=== PATIENT | female | born 1940 | race Hispanic/Latino ===

== ENCOUNTER 2018-01-21 20:47 | Observation (INO) | payer MEDICARE ==
[~2018-01-21] VITALS: Ht 157.5 cm; Wt 54.8 kg
[2018-01-21] MEDS ORDERED: ASPIRIN 325 MG TABLET ONE (21:00)
[2018-01-21 21:15] LABS: BASOPHILS % (AUTO) 0.7 % (0.0-5.0); EOSINOPHILS % (AUTO) 2.2 % (0.0-8.0); HEMATOCRIT 37.1 % (36-48); LYMPHOCYTES % (AUTO) 27.1 % (21.0-51.0); MEAN CORPUSCULAR HEMOGLOBIN 31.5 pg (27.0-33.0); MEAN CORPUSCULAR HGB CONC 34.7 g/dL (32.0-36.0); MEAN CORPUSCULAR VOLUME 90.8 fL (79-99); MONOCYTES % (AUTO) 4.7 % (3.0-13.0); NEUTROPHILS % (AUTO) 65.3 % (40.0-77.0); PLATELET COUNT (AUTO) 228 K/uL (130-400); RED BLOOD CELL COUNT(AUTO) 4.09 MIL/uL (4.00-5.50); RED CELL DISTRIBUTION WIDTH 13.1 % (11.0-15.5); WHITE BLOOD COUNT (AUTO) 8.2 K/uL (4.8-10.8)
[2018-01-21 21:27] LABS: CREATININE 0.7 mg/dL (0.5-1.5); POTASSIUM 3.5 mmol/L (3.5-5.1)
[2018-01-21 21:28] LABS: INR 0.92 (0.85-1.15); PARTIAL THROMBOPLASTIN TIME 23.3 SEC (26.3-35.5); PROTHROMBIN TIME 9.7 SEC (9.6-11.6)
[2018-01-21 21:41] LABS: ALBUMIN 3.7 g/dL (3.5-5.0); BILIRUBIN,TOTAL 0.3 mg/dL (0.2-1.0); CREATINE KINASE MB 0.7 ng/mL (0.5-3.6); TOTAL PROTEIN, SERUM 7.1 g/dL (6.0-8.3)
[2018-01-21 22:05] LABS: B-TYPE NATRIURETIC PEPTIDE 34 pg/mL (0-100)
[2018-01-22] VITALS (8 sets, daily range): BP systolic 112–186; BP diastolic 46–87
[2018-01-22] MEDS ORDERED: LEVO50TA11 PO (04:10)
[2018-01-22] MEDS ORDERED: METF850T2 PO (04:10)
[2018-01-22] MEDS ORDERED: LISI40TA4 PO (04:10)
[2018-01-22] MEDS ORDERED: ATOR10 PO (04:10)
[2018-01-22] MEDS ORDERED: POTASSIUM CHLORIDE 20MEQ/100ML 100 ML IV PRN (06:00)
[2018-01-22] MEDS ORDERED: ONDANSETRON HCL MDV 20ML 2 MG/ML VIAL IVP PRN (06:00)
[2018-01-22] MEDS ORDERED: POTASSIUM CHLORIDE 10% ELIXIR 20 MEQ/15 ML UDCUP PO PRN (06:00)
[2018-01-22] MEDS ORDERED: NITROGLYCERIN 0.4 MG SL TAB SL PRN (06:00)
[2018-01-22] MEDS ORDERED: MORPHINE SULFATE 2 MG/ML 1ML SYG IVP PRN (06:00)
[2018-01-22] MEDS ORDERED: LIDOCAINE HCL-MPF 1% 2ML VIAL IJ PRN (06:00)
[2018-01-22] MEDS ORDERED: PHARMACY COMMUNICATION MISC SCH (06:00)
[2018-01-22] MEDS ORDERED: ACETAMINOPHEN 325 MG TAB PO PRN (06:00)
[2018-01-22 06:10] LABS: HEMATOCRIT 36.5 % (36-48); MEAN CORPUSCULAR HEMOGLOBIN 31.6 pg (27.0-33.0); MEAN CORPUSCULAR VOLUME 90.3 fL (79-99); PLATELET COUNT (AUTO) 199 K/uL (130-400); RED BLOOD CELL COUNT(AUTO) 4.04 MIL/uL (4.00-5.50); WHITE BLOOD COUNT (AUTO) 6.6 K/uL (4.8-10.8)
[2018-01-22 06:24] LABS: CREATININE 0.6 mg/dL (0.5-1.5); POTASSIUM 3.6 mmol/L (3.5-5.1)
[2018-01-22] MEDS ORDERED: DEXTROSE 50%-WATER 50 ML DISP.SYRIN IV PRN (06:30)
[2018-01-22] MEDS ORDERED: HYDRALAZINE HCL 10 MG TABLET PO PRN (06:30)
[2018-01-22] MEDS ORDERED: SODIUM CHLORIDE 0.9% 10 ML VIAL IVP PRN (06:30)
[2018-01-22] MEDS ORDERED: GLUCAGON 1MG KIT 1 MG ML IM PRN (06:30)
[2018-01-22] MEDS: INSULIN R PO SSI SQ SCH ×4 (06:42→21:00)
[2018-01-22] MEDS ORDERED: HYDRALAZINE HCL 20 MG/ML VIAL IV PRN (06:45)
[2018-01-22 09:38] LABS: HEMOGLOBIN A1C 6.8 % (4.0-6.0)
[2018-01-22 09:45] LABS: CREATINE KINASE MB 0.8 ng/mL (0.5-3.6); CREATINE KINASE, TOTAL 38 U/L (21-232); LIPASE 80 U/L (114-286); MYOGLOBIN 28 ng/mL (10-92); TROPONIN I < 0.04 ng/mL (0.00-0.06)
[2018-01-22] MEDS: METOPROLOL TARTRATE 25 MG TAB PO SCH ×2 (10:25→21:45)
[2018-01-22] MEDS: FAMOTIDINE 20MG TAB 20 MG TAB PO SCH ×2 (10:25→21:45)
[2018-01-22] MEDS: SUCRALFATE 1 GM/10 ML PO SCH ×3 (10:25→21:45)
[2018-01-22] MEDS: ASPIRIN 81 MG EC TAB PO SCH (10:25)
[2018-01-22] MEDS: ENOXAPARIN SODIUM 30 MG/0.3 ML SQ SCH (10:25)
[2018-01-22 15:33] LABS: CREATINE KINASE MB 0.6 ng/mL (0.5-3.6); CREATINE KINASE, TOTAL 37 U/L (21-232); MYOGLOBIN 22 ng/mL (10-92); TROPONIN I < 0.04 ng/mL (0.00-0.06)
[2018-01-22] MEDS: METFORMIN HCL 850 MG TABLET PO SCH (17:04)
[2018-01-22] MEDS: POTASSIUM CHLORIDE 20 MEQ ERTAB PO PRN ×3 (17:10→18:32)
[2018-01-22] MEDS ORDERED: ATORVASTATIN CALCIUM 10 MG TABLET PO SCH (21:00)
[2018-01-23 03:40] VITALS: BP 134/66
[2018-01-23 05:01] LABS: HEMATOCRIT 38.2 % (36-48); MEAN CORPUSCULAR HEMOGLOBIN 32.9 pg (27.0-33.0); MEAN CORPUSCULAR HGB CONC 36.2 g/dL (32.0-36.0); MEAN CORPUSCULAR VOLUME 90.8 fL (79-99); PLATELET COUNT (AUTO) 227 K/uL (130-400)
[2018-01-23 05:32] LABS: CARBON DIOXIDE 26 mmol/L (21-32); CHLORIDE 110 mmol/L (101-111); CREATINE KINASE MB 0.5 ng/mL (0.5-3.6); CREATINE KINASE, TOTAL 36 U/L (21-232); CREATININE 0.7 mg/dL (0.5-1.5); GLOMERULAR FILTR. RATE CALC 86 mL/min (>60); GLUCOSE,RANDOM 100 mg/dL (70-105); MYOGLOBIN 35 ng/mL (10-92); POTASSIUM 4.4 mmol/L (3.5-5.1); SODIUM SERUM 145 mmol/L (136-145); TROPONIN I < 0.04 ng/mL (0.00-0.06); UREA NITROGEN, BLOOD 15 mg/dL (7-18)
[2018-01-23] MEDS: INSULIN R PO SSI SQ SCH (05:59)
[2018-01-23] MEDS ORDERED: LEVOTHYROXINE 50 MCG TABLET PO SCH (06:30)
[2018-01-23] MEDS: SUCRALFATE 1 GM/10 ML PO SCH (06:41)
[2018-01-23 08:01] VITALS: BP 151/53
[2018-01-23] MEDS ORDERED: LISINOPRIL 40 MG TABLET PO SCH (09:00)
[2018-01-23] MEDS: ASPIRIN 81 MG EC TAB PO SCH (09:42)
[2018-01-23] MEDS: METFORMIN HCL 850 MG TABLET PO SCH (09:42)
[2018-01-23] MEDS: ENOXAPARIN SODIUM 30 MG/0.3 ML SQ SCH (09:42)
[2018-01-23] MEDS: METOPROLOL TARTRATE 25 MG TAB PO SCH (09:42)
[2018-01-23] MEDS: FAMOTIDINE 20MG TAB 20 MG TAB PO SCH (09:42)
[2018-01-23 11:36] VITALS: BP 135/69
== END 2018-01-23 15:35 | disposition home or self-care (01) ==
LOC: EDH 20:47 → EDHIP 23:54 → 2AH 01-22 04:10
PROVIDERS: ADMIT Internal Medicine Nephrology; ATTEND Internal Medicine Nephrology
DX: I24.9 Acute ischemic heart disease, unspecified (principal); I10 Essential (primary) hypertension; E11.9 Type 2 diabetes mellitus without complications; E03.9 Hypothyroidism, unspecified; F41.1 Generalized anxiety disorder; K21.9 Gastro-esophageal reflux disease without esophagitis; Z82.49 Family history of ischemic heart disease and other diseases of the circulatory system; Z90.710 Acquired absence of both cervix and uterus
CPT/HCPCS: 36415 ×3; 71045; 80048 ×2; 80053; 80061; 82550 ×4; 82553 ×4; 82948 ×5; 83036; 83690; 83735; 83874 ×4; 83880; 84484 ×4; 85025; 85027 ×2; 85378; 85610; 85730; 93005; 93306; 96372 ×2; 99285; G0378 ×40; J1650 ×2; J1815

== ENCOUNTER 2022-04-09 10:21 | Inpatient (IN) | payer MEDICARE ==
[2022-04-09] VITALS (11 sets, daily range): BP systolic 98–155; BP diastolic 44–119
[~2022-04-09] VITALS: Ht 162.6 cm; Wt 47.6 kg
[~2022-04-09 10:21] MED LIST: ATOR10 PO; LEVO50TA11 PO; LISI40TA9 PO; METF-445 PO
[2022-04-09 10:58] LABS: BASOPHILS % (AUTO) 0.2 % (0.0-5.0); EOSINOPHILS % (AUTO) 0.1 % (0.0-8.0); HEMATOCRIT 31.2 % (36-48); LYMPHOCYTES % (AUTO) 6.4 % (21.0-51.0); MEAN CORPUSCULAR HEMOGLOBIN 24.5 pg (27.0-33.0); MEAN CORPUSCULAR HGB CONC 34.9 g/dL (32.0-36.0); MEAN CORPUSCULAR VOLUME 70.3 fL (79-99); MONOCYTES % (AUTO) 6.3 % (3.0-13.0); NEUTROPHILS % (AUTO) 86.5 % (40.0-77.0); PLATELET COUNT (AUTO) 370 K/uL (130-400); RED BLOOD CELL COUNT(AUTO) 4.44 MIL/uL (4.00-5.50); RED CELL DISTRIBUTION WIDTH 15.3 % (11.0-15.5); WHITE BLOOD COUNT (AUTO) 11.8 K/uL (4.8-10.8)
[2022-04-09] MEDS ORDERED: ACETAMINOPHEN 325 MG TAB PO ONE (11:00)
[2022-04-09] MEDS ORDERED: ONDANSETRON 4MG INJ ONE (11:11)
[2022-04-09 11:18] LABS: ALBUMIN 4.2 g/dL (3.5-5.0); BILIRUBIN,TOTAL 0.5 mg/dL (0.2-1.0); CREATININE 0.6 mg/dL (0.5-1.5); MAGNESIUM 1.3 mg/dL (1.80-2.40); POTASSIUM 3.5 mmol/L (3.5-5.1); TOTAL PROTEIN, SERUM 7.4 g/dL (6.0-8.3)
[2022-04-09] MEDS ORDERED: ONDANSETRON 4MG INJ IVP ONE (11:30)
[2022-04-09 11:39] LABS: INR 0.93 (0.85-1.15); PROTHROMBIN TIME 10.1 SEC (9.6-11.6)
[2022-04-09 12:00] LABS: B-TYPE NATRIURETIC PEPTIDE 27 pg/mL (0-100)
[2022-04-09 12:26] LABS: APPEARANCE,URINE Clear (CLEAR); BILIRUBIN,URINE Negative (NEGATIVE); COLOR,URINE Yellow (YELLOW); GLUCOSE, URINE (UA) TRACE mg/dL (NEGATIVE); KETONES,URINE 15 mg/dL (NEGATIVE); LEUKOCYTE ESTERASE ,URINE Negative (NEGATIVE); NITRATE,URINE Negative (NEGATIVE); OCCULT BLOOD,URINE Negative (NEGATIVE); PH,URINE 6.5 (5.0-8.0); PROTEIN,URINE Negative (NEGATIVE)
[2022-04-09 12:35] LABS: BACTERIA,URINE Rare /HPF (None Seen); RBC,URINE 0-1 /HPF (0-1); SQUAMOUS EPITHELIAL CELL,UR Rare /HPF (0-2); WBC,URINE 0-1 /HPF (0-1)
[2022-04-09] MEDS ORDERED: KCL 20 MEQ ERTAB PO ONE ×2 (13:30→15:00)
[2022-04-09] MEDS ORDERED: ACETAMINOPHEN 500 MG TABLET PO PRN (13:30)
[2022-04-09] MEDS ORDERED: HYDRALAZINE 20MG/ML VIAL IV PRN (13:30)
[2022-04-09] MEDS ORDERED: PANTOPRAZOLE 40 MG/VIAL IVP ONE (13:30)
[2022-04-09] MEDS ORDERED: 0.9%NACL 1000ML 1,000 ML IV SCH (13:30)
[2022-04-09] MEDS ORDERED: ONDANSETRON 4MG INJ IVP PRN (13:30)
[2022-04-09] MEDS ORDERED: METF-446 PO (13:32)
[2022-04-09] MEDS ORDERED: FELO5TAB48 PO (13:32)
[2022-04-09] MEDS ORDERED: CHLO25TA3 PO (13:32)
[2022-04-09] MEDS ORDERED: FERR-82 PO (13:32)
[2022-04-09] MEDS ORDERED: MEMA5TAB42 PO (13:32)
[2022-04-09] MEDS ORDERED: PRAV20TA4 PO (13:32)
[2022-04-09] MEDS ORDERED: RIVA2.5T PO (13:32)
[2022-04-09] MEDS ORDERED: CEPH250C3 PO (13:32)
[2022-04-09] MEDS ORDERED: LOSA100T58 PO (13:32)
[2022-04-09] MEDS ORDERED: ACET-66 PO (13:32)
[2022-04-09] MEDS ORDERED: CILO50TA PO (13:32)
[2022-04-09] MEDS ORDERED: LEVO75CA5 PO (13:32)
[2022-04-09] MEDS ORDERED: GABA-529 PO (13:32)
[2022-04-09 13:50] LABS: CREATININE,URINE RANDOM 36 mg/dL (30-135); SODIUM,URINE RANDOM 57 mmol/l (40-220)
[2022-04-09 14:02] LABS: URIC ACID 2.1 mg/dL (2.6-7.2)
[2022-04-09 14:04] LABS: CRP QUANTITATIVE < 2.00 mg/L (0.00-9.0)
[2022-04-09 14:39] LABS: CREATININE 0.6 mg/dL (0.5-1.5); POTASSIUM 3.4 mmol/L (3.5-5.1)
[2022-04-09] MEDS: CEFTRIAXONE 2GM VIAL IVP SCH (14:41)
[2022-04-09] MEDS: THIAMINE HCL 100 MG/ML 2ML VIAL IVP SCH (14:41)
[2022-04-09] MEDS: MAGNESIUM 2GM PREMIX 50ML 50 ML IV SCH (14:42)
[2022-04-09 17:02] LABS: CREATININE 0.6 mg/dL (0.5-1.5); POTASSIUM 3.6 mmol/L (3.5-5.1)
[2022-04-09] MEDS ORDERED: GABAPENTIN 100 MG CAPSULE PO SCH (17:30)
[2022-04-09] MEDS: CILOSTAZOL 100 MG TAB PO SCH (17:47)
[2022-04-09 20:08] LABS: CREATININE 0.5 mg/dL (0.5-1.5); POTASSIUM 3.8 mmol/L (3.5-5.1)
[2022-04-09] MEDS: ATORVASTATIN 10 MG TABLET PO SCH (20:24)
[2022-04-09] MEDS: RIVAROXABAN 2.5 MG TABLET PO SCH (20:25)
[2022-04-09] MEDS: SODIUM CHLORIDE 1,000 MG TAB PO SCH (20:26)
[2022-04-09] MEDS ORDERED: AMLODIPINE 5 MG TAB PO SCH (21:00)
[2022-04-10] VITALS (16 sets, daily range): BP systolic 86–151; BP diastolic 43–81
[2022-04-10] MEDS: LEVOTHYROXINE 75 MCG TABLET PO SCH (06:06)
[2022-04-10 06:29] LABS: BASOPHILS % (AUTO) 0.5 % (0.0-5.0); EOSINOPHILS % (AUTO) 0.5 % (0.0-8.0); HEMATOCRIT 29.4 % (36-48); LYMPHOCYTES % (AUTO) 11.9 % (21.0-51.0); MEAN CORPUSCULAR HEMOGLOBIN 24.6 pg (27.0-33.0); MEAN CORPUSCULAR HGB CONC 34.7 g/dL (32.0-36.0); MEAN CORPUSCULAR VOLUME 70.8 fL (79-99); MONOCYTES % (AUTO) 8.3 % (3.0-13.0); NEUTROPHILS % (AUTO) 78.6 % (40.0-77.0); PLATELET COUNT (AUTO) 349 K/uL (130-400); RED BLOOD CELL COUNT(AUTO) 4.15 MIL/uL (4.00-5.50); RED CELL DISTRIBUTION WIDTH 15.6 % (11.0-15.5); WHITE BLOOD COUNT (AUTO) 6.6 K/uL (4.8-10.8)
[2022-04-10 06:48] LABS: ALBUMIN 3.7 g/dL (3.5-5.0); BILIRUBIN,TOTAL 0.5 mg/dL (0.2-1.0); CREATININE 0.6 mg/dL (0.5-1.5); MAGNESIUM 1.9 mg/dL (1.80-2.40); POTASSIUM 3.3 mmol/L (3.5-5.1)
[2022-04-10] MEDS: PANTOPRAZOLE 40 MG/VIAL IVP SCH (08:07)
[2022-04-10] MEDS: CILOSTAZOL 100 MG TAB PO SCH ×2 (08:07→15:58)
[2022-04-10] MEDS: KCL 20 MEQ ERTAB PO SCH (08:08)
[2022-04-10] MEDS: MEMANTINE HCL 5 MG TABLET PO SCH (08:09)
[2022-04-10] MEDS: RIVAROXABAN 2.5 MG TABLET PO SCH ×2 (08:09→21:54)
[2022-04-10] MEDS: SODIUM CHLORIDE 1,000 MG TAB PO SCH ×3 (08:09→21:54)
[2022-04-10] MEDS ORDERED: FERROUS SULFATE 325 MG TABLET.DR PO SCH (09:00)
[2022-04-10] MEDS ORDERED: LOSARTAN 100 MG TABLET PO SCH (09:00)
[2022-04-10] MEDS: IRON SUCROSE COMPLEX 100 MG/5 ML VIAL IVP SCH (09:30)
[2022-04-10] MEDS: CEFTRIAXONE 2GM VIAL IVP SCH (14:10)
[2022-04-10] MEDS: THIAMINE HCL 100 MG/ML 2ML VIAL IVP SCH (14:10)
[2022-04-10] MEDS: ATORVASTATIN 10 MG TABLET PO SCH (21:53)
[2022-04-11 04:00] VITALS: BP 100/61
[2022-04-11 04:30] LABS: ALBUMIN 3.6 g/dL (3.5-5.0); BILIRUBIN,TOTAL 0.3 mg/dL (0.2-1.0); CREATININE 0.6 mg/dL (0.5-1.5); MAGNESIUM 1.8 mg/dL (1.80-2.40); POTASSIUM 3.6 mmol/L (3.5-5.1); TOTAL PROTEIN, SERUM 7.1 g/dL (6.0-8.3)
[2022-04-11] MEDS: LEVOTHYROXINE 75 MCG TABLET PO SCH (05:55)
[2022-04-11] MEDS: CILOSTAZOL 100 MG TAB PO SCH ×2 (06:04→16:25)
[2022-04-11 07:35] VITALS: BP 161/51
[2022-04-11] MEDS: IRON SUCROSE COMPLEX 100 MG/5 ML VIAL IVP SCH (08:32)
[2022-04-11] MEDS: PANTOPRAZOLE 40 MG/VIAL IVP SCH (08:32)
[2022-04-11] MEDS: SODIUM CHLORIDE 1,000 MG TAB PO SCH ×3 (08:32→20:18)
[2022-04-11] MEDS: RIVAROXABAN 2.5 MG TABLET PO SCH ×2 (08:32→20:18)
[2022-04-11] MEDS: MEMANTINE HCL 5 MG TABLET PO SCH (08:33)
[2022-04-11] MEDS: KCL 20 MEQ ERTAB PO SCH (08:35)
[2022-04-11] MEDS ORDERED: IRON SUCROSE COMPLEX 100 MG in 0.9%NACL 50ML 50 ML IV SCH (09:00)
[2022-04-11 11:30] VITALS: BP 117/58
[2022-04-11] MEDS: CEFTRIAXONE 2GM VIAL IVP SCH (12:54)
[2022-04-11] MEDS ORDERED: SODI100037 PO (13:04)
[2022-04-11] MEDS: THIAMINE HCL 100 MG/ML 2ML VIAL IVP SCH (13:12)
[2022-04-11 15:28] VITALS: BP 116/60
[2022-04-11] MEDS: ATORVASTATIN 10 MG TABLET PO SCH (20:28)
[2022-04-12] MEDS: LEVOTHYROXINE 75 MCG TABLET PO SCH (04:55)
[2022-04-12 07:05] VITALS: BP 162/71
[2022-04-12] MEDS: KCL 20 MEQ ERTAB PO SCH (08:00)
[2022-04-12 08:43] LABS: BILIRUBIN,TOTAL 0.2 mg/dL (0.2-1.0); CREATININE 0.7 mg/dL (0.5-1.5); MAGNESIUM 1.6 mg/dL (1.80-2.40); POTASSIUM 3.4 mmol/L (3.5-5.1); TOTAL PROTEIN, SERUM 7.7 g/dL (6.0-8.3)
[2022-04-12] MEDS: MEMANTINE HCL 5 MG TABLET PO SCH (09:38)
[2022-04-12] MEDS: PANTOPRAZOLE 40 MG/VIAL IVP SCH (09:38)
[2022-04-12] MEDS: IRON SUCROSE COMPLEX 100 MG/5 ML VIAL IVP SCH (09:38)
[2022-04-12] MEDS: RIVAROXABAN 2.5 MG TABLET PO SCH ×2 (09:38→21:00)
[2022-04-12] MEDS: CILOSTAZOL 100 MG TAB PO SCH ×2 (09:40→16:18)
[2022-04-12 11:05] VITALS: BP 133/67
[2022-04-12] MEDS: THIAMINE HCL 100 MG/ML 2ML VIAL IVP SCH (12:20)
[2022-04-12] MEDS: CEFTRIAXONE 2GM VIAL IVP SCH (12:42)
[2022-04-12] MEDS: MAGNESIUM 2GM PREMIX 50ML 50 ML IV SCH (12:42)
[2022-04-12 15:00] VITALS: BP 142/64
[2022-04-12 19:49] VITALS: BP 136/58
[2022-04-12] MEDS: ATORVASTATIN 10 MG TABLET PO SCH (21:00)
[2022-04-12] MEDS: RISPERIDONE 0.5 MG TABLET PO SCH (21:00)
[2022-04-13 00:25] VITALS: BP 126/56
[2022-04-13 04:51] VITALS: BP 168/69
[2022-04-13 06:24] LABS: BASOPHILS % (AUTO) 0.7 % (0.0-5.0); EOSINOPHILS % (AUTO) 0.1 % (0.0-8.0); HEMATOCRIT 31.2 % (36-48); LYMPHOCYTES % (AUTO) 8.2 % (21.0-51.0); MEAN CORPUSCULAR HEMOGLOBIN 24.6 pg (27.0-33.0); MEAN CORPUSCULAR HGB CONC 33.7 g/dL (32.0-36.0); MEAN CORPUSCULAR VOLUME 73.1 fL (79-99); MONOCYTES % (AUTO) 6.1 % (3.0-13.0); NEUTROPHILS % (AUTO) 84.4 % (40.0-77.0); PLATELET COUNT (AUTO) 388 K/uL (130-400); RED BLOOD CELL COUNT(AUTO) 4.27 MIL/uL (4.00-5.50); RED CELL DISTRIBUTION WIDTH 16.9 % (11.0-15.5); WHITE BLOOD COUNT (AUTO) 9.1 K/uL (4.8-10.8)
[2022-04-13] MEDS: LEVOTHYROXINE 75 MCG TABLET PO SCH (06:30)
[2022-04-13 06:47] LABS: CREATININE 0.5 mg/dL (0.5-1.5); POTASSIUM 3.3 mmol/L (3.5-5.1)
[2022-04-13 08:00] VITALS: BP 185/74
[2022-04-13] MEDS: KCL 20 MEQ ERTAB PO SCH (08:00)
[2022-04-13] MEDS: THIAMINE HCL 100 MG/ML 2ML VIAL IVP SCH (08:49)
[2022-04-13] MEDS ORDERED: SODIUM CHLORIDE 1,000 MG TAB PO SCH (09:00)
[2022-04-13] MEDS: MEMANTINE HCL 5 MG TABLET PO SCH (09:46)
[2022-04-13] MEDS: PANTOPRAZOLE 40 MG/VIAL IVP SCH (09:47)
[2022-04-13] MEDS: RIVAROXABAN 2.5 MG TABLET PO SCH (09:47)
[2022-04-13] MEDS: CILOSTAZOL 100 MG TAB PO SCH ×2 (09:47→15:32)
[2022-04-13] MEDS: IRON SUCROSE COMPLEX 100 MG/5 ML VIAL IVP SCH (09:47)
[2022-04-13] MEDS: RISPERIDONE 0.5 MG TABLET PO SCH (09:49)
[2022-04-13] MEDS: MAGNESIUM 2GM PREMIX 50ML 50 ML IV SCH (11:11)
[2022-04-13] MEDS ORDERED: POTASSIUM CHLORIDE 10% ELIXIR 20 MEQ/15 ML UDCUP PO PRN (11:30)
[2022-04-13] MEDS ORDERED: LIDOCAINE HCL-MPF 1% 2ML VIAL IV PRN (11:30)
[2022-04-13] MEDS ORDERED: KCL 20 MEQ ERTAB PO PRN (11:30)
[2022-04-13] MEDS ORDERED: POTASSIUM CHLORIDE 20MEQ/100ML 100 ML IV PRN (11:30)
[2022-04-13 12:00] VITALS: BP 113/54
[2022-04-13] MEDS ORDERED: AMLODIPINE 5 MG TAB PO SCH ×2 (15:25→15:30)
[2022-04-13 16:13] VITALS: BP 127/65
== END 2022-04-13 16:52 | DRG 643 ==
LOC: EDH 10:21 → EDHIP 13:26 → 2BH 17:24 → 4CH 04-10 16:30
PROVIDERS: ADMIT Hospitalist; ATTEND Hospitalist
DX: E22.2 Syndrome of inappropriate secretion of antidiuretic hormone (principal); G93.41 Metabolic encephalopathy; D64.9 Anemia, unspecified; F03.90 Unspecified dementia, unspecified severity, without behavioral disturbance, psychotic disturbance, mood disturbance, and anxiety; I10 Essential (primary) hypertension; I25.10 Atherosclerotic heart disease of native coronary artery without angina pectoris; N19 Unspecified kidney failure; E87.8 Other disorders of electrolyte and fluid balance, not elsewhere classified; E78.5 Hyperlipidemia, unspecified; E11.51 Type 2 diabetes mellitus with diabetic peripheral angiopathy without gangrene; K59.00 Constipation, unspecified; E03.9 Hypothyroidism, unspecified; E78.00 Pure hypercholesterolemia, unspecified; Z20.822 Contact with and (suspected) exposure to COVID-19; Z90.710 Acquired absence of both cervix and uterus; Z79.899 Other long term (current) drug therapy; Z90.49 Acquired absence of other specified parts of digestive tract; Z87.440 Personal history of urinary (tract) infections
CPT/HCPCS: 36415; 70450; 71045; 72125; 74176; 80048; 80053; 81001; 82533; 82550; 82570; 82728; 83540; 83550; 83605; 83735; 83880; 83930; 83935; 84145; 84300; 84443; 84484; 84540; 84550; 85025; 85610; 85651; 85730; 86140; 87040; 87088; 87635; 87804; 92610; 93005; 97039; C9113; C9803; G0378; J0696; J1756; J2405; J3411; J3475

== ENCOUNTER 2024-09-01 10:52 | Inpatient (IN) | payer OTHER, MEDICARE ==
[~2024-09-01] VITALS: Ht 149.9 cm; Wt 23.6 kg
[~2024-09-01 10:52] MED LIST changes: +ACET-66 PO; -ATOR10 PO; +CILO50TA2 PO; +FELO5TAB48 PO; +FERR-82 PO; +GABA-529 PO; -LEVO50TA11 PO; +LEVO75CA5 PO; -LISI40TA9 PO; +LOSA100T59 PO; +MEMA5TAB16 PO; -METF-445 PO; +METF-446 PO; +PRAV20TA4 PO; +RIVA2.5T PO; +SODI100037 PO
[2024-09-01 11:41] LABS: APPEARANCE,URINE CLEAR (CLEAR); BILIRUBIN,URINE NEGATIVE (NEGATIVE); COLOR,URINE YELLOW (YELLOW); GLUCOSE, URINE (UA) NEGATIVE (NEGATIVE); KETONES,URINE 10 mg/dL (NEGATIVE); LEUKOCYTE ESTERASE ,URINE NEGATIVE Leu/uL (NEGATIVE); NITRATE,URINE NEGATIVE (NEGATIVE); OCCULT BLOOD,URINE NEGATIVE (NEGATIVE); PH,URINE 5.5 (5.0-8.0); PROTEIN,URINE 30 mg/dL (NEGATIVE); UROBILINOGEN,URINE 0.2 mg/dL (0.2-1.0)
[2024-09-01 11:43] LABS: ADD UA MICROSCOPIC YES
[2024-09-01 11:45] LABS: BASOPHILS # (AUTO) 0.02 K/uL (0.00-0.20); BASOPHILS % (AUTO) 0.2 % (0.0-5.0); HEMATOCRIT 33.3 % (36-48); IMMATURE GRANULOCYTE ABSOLUTE 0.02 K/uL (0-1); LYMPHOCYTES # (AUTO) 0.6 K/uL (1.0-4.8); LYMPHOCYTES % (AUTO) 7.5 % (21.0-51.0); MEAN CORPUSCULAR HEMOGLOBIN 31.3 pg (27.0-33.0); MEAN CORPUSCULAR HGB CONC 36.3 g/dL (32.0-36.0); MEAN CORPUSCULAR VOLUME 86.3 fL (79-99); MONOCYTES # (AUTO) 0.3 K/uL (0.1-1.0); MONOCYTES % (AUTO) 4.1 % (3.0-13.0); NEUTROPHILS # (AUTO) 7.3 K/uL (1.8-7.7); PLATELET COUNT (AUTO) 269 K/uL (130-400); RED BLOOD CELL COUNT(AUTO) 3.86 MIL/uL (4.00-5.50); RED CELL DISTRIBUTION WIDTH 14.6 % (11.0-15.5); WHITE BLOOD COUNT (AUTO) 8.3 K/uL (4.8-10.8)
[2024-09-01 11:55] LABS: MUCUS,URINE RARE LPF (None Seen); RBC,URINE 0-1 /HPF (0-1); SQUAMOUS EPITHELIAL CELL,UR RARE /HPF (0-2); WBC,URINE 0-1 /HPF (0-1)
[2024-09-01 12:04] LABS: ALBUMIN 3.6 g/dL (3.5-5.0); BILIRUBIN,TOTAL 0.9 mg/dL (0.2-1.0); CREATININE 0.6 mg/dL (0.5-1.0); TOTAL PROTEIN, SERUM 7.5 g/dL (6.0-8.3)
[2024-09-01 12:11] LABS: POTASSIUM 2.7 mmol/L (3.5-5.1)
--- NOTE | 2024-09-01 12:27 | HMCIMG ---
CT ABDOMEN/PELVIS W/O CONTRAST HISTORY: Abdominal pain COMPARISON: None TECHNIQUE: Multiple sequential axial images of the abdomen and pelvis were obtained from the dome of the diaphragm through symphysis pubis. Patient was not given contrast through intravenous route. Oral contrast was not given. FINDINGS: There are bilateral pleural effusions with compressive atelectasis. COPD changes are seen. There is no evidence of parenchymal disease or pulmonary nodule of the visualized lower lungs. Degenerative changes of the thoracolumbar spine are present. The heart is not enlarged. The liver, spleen, adrenal glands and pancreas are unremarkable. There is no evidence of hydronephrosis bilaterally. No evidence of renal stone is seen. Extensive colonic distention is seen may be related to distal colon obstruction versus constipation. Fecal material is seen in the colon. There are normal size retroperitoneal and mesenteric lymph nodes. No ascites is seen. Atherosclerotic changes are present. There is anasarca. Appendix is not seen. There is diverticulosis. The study is limited due to cachexia. Pelvic sidewalls are symmetric bilaterally. Bladder is well distended without wall thickening. IMPRESSION: 1. Extensive colonic distention is seen may be related to distal colon obstruction versus constipation. Fecal material is seen in the colon. Bilateral pleural effusions. CT was performed with one or more following dose reduction techniques: automated exposure control, adjustment of the mA and kv according to patient's size, or use of a iterative reconstruction technique.
--- NOTE | 2024-09-01 12:35 | ERN ---
General Chief Complaint: Constipation Stated Complaint: CONSTIPATION Time Seen by MD: 10:54 Source: patient, EMS History of Present Illness Initial Comments PATIENT IS A AN 84-YEAR-OLD FEMALE COMING IN TO BE EVALUATED FOR ABDOMINAL DISTENTION. PER PATIENT SHE HAS BEEN SEEN BEFORE FOR CONSTIPATION BUT HAS NOT BEEN ABLE TO COMPLETELY DEFECATE. PATIENT IS ALSO PRESENTING WITH NAUSEA AND VOMITING. Allergies: Coded Allergies: No Known Allergies (Unverified Allergy, Unknown, 01/22/18) Home Meds Active Scripts Sodium Chloride (Sodium Chloride) 1,000 Mg Tab, 1000 MG PO DAILY for 5 Days, #5 TAB Prov:RAUL HANSON CHARGE ENTRY 04/11/22 Reported Medications Acetaminophen (Tylenol) 500 Mg Tab, 500 MG PO Q6HPRN, TAB 04/09/22 Metformin HCl (Metformin HCl) 1,000 Mg Tablet, 1000 MG PO BIDAC, TAB 04/09/22 Losartan Potassium (Losartan Potassium) 100 Mg Tablet, 100 MG PO DAILY, TAB 04/09/22 Levothyroxine Sodium (Levothyroxine) 75 Mcg Capsule, 75 MCG PO DAILY, CAP 04/09/22 Ferrous Sulfate (Iron) 325 Mg Tablet, 325 MG PO DAILY, TAB 04/09/22 Gabapentin (Gabapentin) 100 Mg Capsule, 100 MG PO HSPRN, CAP 04/09/22 Pravastatin Sodium (Pravastatin Sodium) 20 Mg Tablet, 20 MG PO DAILY, TAB 04/09/22 Cilostazol (Cilostazol) 50 Mg Tablet, 50 MG PO BIDAC, TAB 04/09/22 Memantine HCl (Memantine HCl) 5 Mg Tablet, 5 MG PO DAILY, TAB 04/09/22 Rivaroxaban (Xarelto) 2.5 Mg Tablet, 2.5 MG PO BID, TAB 04/09/22 Felodipine (Felodipine ER) 5 Mg Tab.er.24h, 5 MG PO HS, TAB 04/09/22 Past Medical History Past Medical History: CAD, Dementia, Diabetes-Type II, High Cholesterol, Hypertension Past Surgical History: Unknown Social History Social History: Lives with family ROS Dictation CONSTITUTIONAL: NO CHILLS, NO FEVER, NO WEAKNESS, NO DIAPHORESIS, NO MALAISE. HEAD/FACE: NO SIGNS OF TRAUMA. EENT: NO EYE PAIN, NO BLURRED VISION, NO TEARING, NO DOUBLE VISION, NO EAR PAIN, NO EAR DISCHARGE, NO NOSE PAIN, NO NASAL CONGESTION, NO THROAT PAIN, NO THROAT SWELLING, NO MOUTH PAIN. RESPIRATORY: NO COUGH, NO ORTHOPNEA, NO SOB, NO STRIDOR, NO WHEEZING. CARDIOVASCULAR: NO CHEST PAIN, NO EDEMA, NO PALPITATIONS, NO SYNCOPE. GASTROINTESTINAL/ABDOMINAL: ABDOMINAL PAIN, CONSTIPATION, NO DIARRHEA, NAUSEA, VOMITING. GENITOURINARY: NO ABNORMAL DISCHARGE, NO DYSURIA, NO FREQUENT URINATION, NO HEMATURIA. NO COMPLAINTS OF PAIN IN THE GENITALS. MUSCULOSKELETAL: NO BACK PAIN, NO GOUT, NO JOINT PAIN, NO JOINT SWELLING, NO MUSCLE PAIN, NO MUSCLE STIFFNESS, NO NECK PAIN. INTEGUMENTARY: NO CHANGE IN COLOR, NO CHANGE IN HAIR/NAILS, NO DRYNESS, NO LESION, NO LUMPS, NO RASH. NEUROLOGICAL/PSYCH: NO ANXIETY, NOT DEPRESSED, NO EMOTIONAL PROBLEM, NO HEADACHE, NO NUMBNESS, NO PRE-EXISTING DEFICIT, NO HISTORY OF SEIZURES, NO TREMORS, NO WEAKNESS. HEMATOLOGIC/LYMPHATIC: NOT ANEMIC, NO HISTORY OF BLOOD CLOTS, NO APPARENT BLEEDING, NO BRUISING, GLANDS NOT SWOLLEN. ALL SYSTEMS NEGATIVE, EXCEPT NOTED. Physical Exam Physical Exam Dictation VITAL SIGNS: REVIEWED. GENERAL APPEARANCE: ALERT, ORIENTED X3, NO ACUTE DISTRESS, OBESE. HEAD AND FACE: NON-TRAUMATIC. EYES: PERRL, PINK CONJUNCTIVAS, EYELID NO TRAUMA, ANTERIOR CHAMBER CLEAR. EARS: PINNAS INTACT AND NO SIGNS OF TRAUMA OR ERYTHEMA. EAR CANALS CLEAR AND NO DISCHARGE. TMS NO ERYTHEMA. NOSE: NO DISCHARGE, NO BLEEDING. OROPHARYNX: MOUTH NORMAL, TEETH NO CARIES, TONGUE PINK. PHARYNX CLEAR, NO ERYTHEMA. TONSILS NO EXUDATES, NO ABSCESSES NOTED. MUCOUS MEMBRANE MOIST. NECK: SUPPLE, NON-TENDER, NO THYROMEGALY, NO MASSES, NO JVD, NO BRUITS. BREAST: DEFERRED. CHEST: NO TENDERNESS, NO CREPITUS, NO PARADOXICAL MOVEMENT, NO RETRACTIONS. LUNGS: CLEAR, WELL-VENTILATED, SYMMETRIC, NO RALES, NO WHEEZING, NO RHONCHI, NO STRIDOR, GOOD BREATH SOUNDS BILATERALLY. HEART: REGULAR RATE, REGULAR RHYTHM, NO MURMUR, NO GALLOPS. VASCULAR: NO PERIPHERAL EDEMA. ABDOMEN: SOFT, POSITIVE BOWEL SOUNDS, DISTENDED, NO GUARDING,TENDER, NO REBOUND, NO MASSES NO HEPATOMEGALY, NO SPLENOMEGALY, NO CHAVARRIA'S SIGN, NO HERNIAS. RECTAL: DEFERRED. GENITAL: DEFERRED. NEUROLOGICAL: NORMAL SPEECH, GROSS MOTOR FUNCTION INTACT, GROSS SENSORY FUNCTION INTACT. MUSCULOSKELETAL: NECK NONTENDER, FULL RANGE OF MOTION, BACK NONTENDER, FULL RANGE OF MOTION. EXTREMITIES: NONTENDER, FULL RANGE OF MOTION. SKIN: COLOR PINK, DRY, NO TURGOR, NO RASH, NO LACERATIONS, NO ABRASIONS, NO CONTUSIONS. LYMPHATICS: DEFERRED. Results Laboratory and Microbiology Lab and Micro Result Laboratory Tests Test 09/01/24 11:21 09/01/24 11:35 Urine Color YELLOW (YELLOW) Urine Appearance CLEAR (CLEAR) Urine pH 5.5 (5.0-8.0) Urine Specific [place] 1.016 (1.001-1.031) Urine Protein 30 mg/dL (NEGATIVE) H Urine Glucose (UA) NEGATIVE mg/dL (NEGATIVE) Urine Ketones 10 mg/dL (NEGATIVE) H Urine Occult Blood NEGATIVE (NEGATIVE) Urine Nitrate NEGATIVE (NEGATIVE) Urine Bilirubin NEGATIVE mg/dL (NEGATIVE) Urine Urobilinogen 0.2 mg/dL (0.2-1.0) Urine Leukocyte Esterase NEGATIVE Ankur/uL Urine RBC 0-1 /HPF (0-1) Urine WBC 0-1 /HPF (0-1) Urine Squamous Epithelial Cells RARE /HPF (0-2) Urine Bacteria None /HPF (None Seen) Urine Hyaline Casts 2-5 /LPF (0-1 /LPF) H White Blood Count 8.3 K/uL (4.8-10.8) Red Blood Count 3.86 MIL/uL (4.00-5.50) L Hemoglobin 12.1 g/dL (12.0-16.0) Hematocrit 33.3 % (36-48) L Mean Corpuscular Volume 86.3 fL (79-99) Mean Corpuscular Hemoglobin 31.3 pg (27.0-33.0) Mean Corpuscular Hemoglobin Concent 36.3 g/dL (32.0-36.0) H Red Cell Distribution Width 14.6 % (11.0-15.5) Platelet Count 269 K/uL (130-400) Mean Platelet Volume 9.9 fL (7.5-10.5) Immature Granulocyte % (Auto) 0.2 % (0-1) Neutrophils (%) (Auto) 88.0 % (40.0-77.0) H Lymphocytes (%) (Auto) 7.5 % (21.0-51.0) L Monocytes (%) (Auto) 4.1 % (3.0-13.0) Eosinophils (%) (Auto) 0.0 % (0.0-8.0) Basophils (%) (Auto) 0.2 % (0.0-5.0) Neutrophils # (Auto) 7.3 K/uL (1.8-7.7) Lymphocytes # (Auto) 0.6 K/uL (1.0-4.8) L Monocytes # (Auto) 0.3 K/uL (0.1-1.0) Eosinophils # (Auto) 0.00 K/uL (0.00-0.70) Basophils # (Auto) 0.02 K/uL (0.00-0.20) Absolute Immature Granulocyte (auto 0.02 K/uL (0-1) Nucleated Red Blood Cells 0.0 % (0.0-0.19) Sodium Level 140 mmol/L (136-145) Potassium Level 2.7 mmol/L (3.5-5.1) *L Chloride Level 101 mmol/L (101-111) Carbon Dioxide Level 28 mmol/L (21-32) Blood Urea Nitrogen 12 mg/dL (7-18) Creatinine 0.6 mg/dL (0.5-1.0) Glomerular Filtration Rate Calc 88 mL/min (>90) Random Glucose 109 mg/dL (70-105) H Total Calcium 9.5 mg/dL (8.5-10.1) Magnesium Level 2.90 mg/dL (1.80-2.40) H Total Bilirubin 0.9 mg/dL (0.2-1.0) Aspartate Amino Transf (AST/SGOT) 26 U/L (10-37) Alanine Aminotransferase (ALT/SGPT) 20 U/L (12-78) Alkaline Phosphatase 86 U/L (50-136) Total Protein 7.5 g/dL (6.0-8.3) Albumin 3.6 g/dL (3.5-5.0) Labs Reviewed?: Yes EKG/XRAY/US/CT/MRI CT Scan Comment [facility] [address] [place] [id number] IMAGING REPORT Signed PATIENT: LAURIE POSADA MR#: [id number] : 1940 SEX: F AGE: 84 LOCATION: [facility] ORDER 36 STATUS: REG ER REPORT#: [id number] SERVICE 113 REASON: ABD PAIN ORDERING PHYSICIAN: NOBLE GENTILE MD PROCEDURE: ABD PEL WO - CT ABDOMEN/PELVIS W/O CONTRAST CT ABDOMEN/PELVIS W/O CONTRAST HISTORY: Abdominal pain COMPARISON: None TECHNIQUE: Multiple sequential axial images of the abdomen and pelvis were obtained from the dome of the diaphragm through symphysis pubis. Patient was not given contrast through intravenous route. Oral contrast was not given. FINDINGS: There are bilateral pleural effusions with compressive atelectasis. COPD changes are seen. There is no evidence of parenchymal disease or pulmonary nodule of the visualized lower lungs. Degenerative changes of the thoracolumbar spine are present. The heart is not enlarged. The liver, spleen, adrenal glands and pancreas are unremarkable. There is no evidence of hydronephrosis bilaterally. No evidence of renal stone is seen. Extensive colonic distention is seen may be related to distal colon obstruction versus constipation. Fecal material is seen in the colon. There are normal size retroperitoneal and mesenteric lymph nodes. No ascites is seen. Atherosclerotic changes are present. There is anasarca. Appendix is not seen. There is diverticulosis. The study is limited due to cachexia. Pelvic sidewalls are symmetric bilaterally. Bladder is well distended without wall thickening. IMPRESSION: 1. Extensive colonic distention is seen may be related to distal colon obstruction versus constipation. Fecal material is seen in the colon. Bilateral pleural effusions. CT was performed with one or more following dose reduction techniques: automated exposure control, adjustment of the mA and kv according to patient's size, or use of a iterative reconstruction technique. DICTATED BY: SUNDAR BOOTHE MD DATE: 09/01/241223 ELECTRONICALLY SIGNED BY: SUNDAR BOOTHE MD DATE: 09/01/241226 [facility] MDM: DIFFERENTIAL DIAGNOSIS: DEHYDRATION, CONSTIPATION, LARGE BOWEL OBSTRUCTION RATIONALE: TESTS CONSIDERED AND ORDERED SECONDARY TO SHARED DECISION MAKING INCLUDE: LABS, ECG AND RADIOLOGY PREVIOUS OUTSIDE RECORDS REVIEWED: OLD ER VISITS. RISK OF COMPLICATION AND/OR MORBIDITY OR MORTALITY OF PATIENT MANAGEMENT: NONE MEDICATIONS-PER MEDICATION RECONCILIATION NEED FOR HOSPITALIZATION: PATIENT DOES MEET CRITERIA FOR HOSPITALIZATION. NEED FOR EMERGENCY MAJOR/MINOR SURGERY: NO THERE ARE NO SOCIAL CONCERNS WITH THIS PATIENT. PRESCRIPTION DRUG MANAGEMENT PRESCRIPTIONS WILL INCLUDE SYMPTOMATIC CARE PATIENT'S PRIOR EXTERNAL MEDICAL RECORDS FROM OTHER ER VISITS WERE REVIEWED BY ME INDICATED. PRIOR TESTING AND RESULTS FROM PREVIOUS VISITS WERE REVIEWED. PRIOR TESTS WERE TAKEN INTO ACCOUNT WITH MEDICAL DECISION MAKING AND RESOURCE UTILIZATION, INDEPENDENT HISTORIAN/HISTORIANS WERE USED TO OBTAIN COMPLETE MEDICAL HISTORY. I INDEPENDENTLY INTERPRETED THE TEST THAT WERE PERFORMED, RESULTS WERE REVIEWED BY ME AND CONSIDERED FINDINGS ON RADIOLOGY IF ORDERED. MEDICAL MANAGEMENT AND EXAMINATION INTERPRETATION DISCUSSIONS WERE HAD BY ME WITH OTHER QUALIFIED HEALTHCARE PROFESSIONALS INDICATED FOR THE PATIENT'S CARE. PATIENT WILL BE ADMITTED UNDER THE CARE OF HOSPITALIST GROUP FOR ONGOING MANAGEMENT ED Course Orders Procedure Category Date Status Time Cbc With Differential LAB 09/01/24 In Process 10:58 Comprehensive LAB 09/01/24 Complete Metabolic Panel 10:58 Urinalysis Profile LAB 09/01/24 Complete 10:58 Bladder Scan CPOE 09/01/24 Transmitted 11:08 Nurse Driven [place] MERARI 09/01/24 In Process Removal Pro 11:08 Ct Abdomen/Pelvis W/O CT 09/01/24 Resulted Contrast 11:36 Magnesium LAB 09/01/24 Complete 12:13 Potassium Chloride PHA 09/01/24 Complete 20meq/100ml ([place] 12:47 Potassium Chloride PHA 09/01/24 In Process 20meq/100ml ([place] 13:00 Current Medications Medications (Trade) Dose Ordered Sig/Emily Route PRN Reason Start Time Stop Time Status Last Admin Dose Admin Potassium Chloride 100 ml @ 50 mls/hr ONCE ONCE IV 09/01/24 13:00 09/01/24 14:59 09/01/24 12:50 Potassium Chloride 100 ml @ As Directed STK-MED ONCE IV 09/01/24 12:47 09/01/24 12:47 DC Vital Signs Date Time Temp Pulse Resp B/P (MAP) Pulse Ox O2 Delivery O2 Flow Rate FiO2 09/01/24 12:58 84 12 138/55 96 Room Air* 0 21 09/01/24 11:16 97.5 86 26 145/59 99 Room Air* 0 21 09/01/24 10:53 97.5 86 26 145/59 99 Room Air 0 DX & DISP Disposition: Inpatient Decision to Admit Time: 13:14 Departure Impression: Primary Impression: Dementia Additional Impressions: Dehydration, Large bowel obstruction Condition: Stable Referrals: TOMAS PINEDO MD (PCP) NOBLE GENTILE MD Sep 01, 2024 12:35
[2024-09-01] MEDS: PoTASSium chloRIDE 20MEQ/100ML 100 ML IV ONE ×2 (12:50)
--- NOTE | 2024-09-01 13:29 | HP ---
[facility] HISTORY AND PHYSICAL Date of Service: Sep 01, 2024 Time of Service: 13:11 HISTORY OF PRESENT ILLNESS: [ ] Admission date 09 01 2024 PCP; Dr Da Reilly MD This is a 84-year-old female was brought in by family members presented with abdominal pain distention. Family reports patient has not been having bowel movements for the past two days. She started with nausea and vomiting with abdominal distention. Patient appears emaciated, fragile and debilitated. ER workup imaging abdomen and pelvis Extensive colonic distention is seen may be related to distal colon obstruction versus constipation. Bladder scan was done urinary retention Cor[place] catheter was placed. Dr. Molina discussed DNR status with family they we will proceed with DNR DNI on this admission. GI has been consulted we will follow the recommendations. REVIEW OF SYSTEMS CONSTITUTIONAL: Denies fevers, chills, or night sweats. No unintentional weight loss reported. NEUROLOGICAL: Denies headache, amaurosis fugax, motor weakness, sensory deficit, vertigo/spinning sensation, gait abnormalities, or tremors. ENT: No hearing loss, otalgia, otorrhea, rhinitis, rhinorrhea, hoarseness, or sore throat. CARDIOVASCULAR: Denies any exertional angina, dyspnea on exertion, orthopnea, paroxysmal nocturnal dyspnea, palpitations, life-threatening arrhythmias, claudication. PULMONARY: Denies any shortness of breath, cough, phlegm/sputum, hemoptysis, pleuritic chest pain. SLEEP: Denies morning headaches, daytime somnolence or napping. Denies difficulty falling asleep, staying asleep, waking from sleep. Denies knowledge of snoring. GASTROINTESTINAL: Denies any type of dysphagia to either liquids or solids. Denies nausea, vomiting, pyrosis, early satiety, abdominal pain, diarrhea, constipation, or changes in stool consistency or caliber. Denies coffee-ground emesis, hematemesis, hematochezia, or melanotic stools. GENITOURINARY: Denies frequency, urgency, nocturia, hematuria or incontinence (Storage/Irritative symptoms.) Low urinary stream, straining to void, urinary intermittency or hesitancy, splitting of the voiding stream, terminal dribbling. ENDOCRINOLOGIC: Denies polyuria, polydipsia, polyphagia or heat/cold intolerances. HEMATOLOGIC: Denies thrombophilia/previous clots, or coagulopathy/bleeding disorders. ONCOLOGIC: Denies personal history of malignancy. DERMATOLOGIC: Denies rashes or pruritus. PSYCHIATRIC: Denies any suicidal or homicidal ideation. Denies hallucinations. PAST MEDICAL HISTORY: [ ] CAD, Dementia, Diabetes-Type II, High Cholesterol, Hypertension PAST SURGICAL HISTORY: [ ] PAST SOCIAL HISTORY: [ ] Denies smoking tobacco products and alcohol use lives with family FAMILY HISTORY: [ ] Noncontributory Coded Allergies: No Known Allergies (Unverified Allergy, Unknown, 01/22/18) PHYSICAL EXAM GENERAL APPEARANCE: chronically ill, emaciated cachexia NEUROLOGICAL: Cranial nerves II-XII grossly intact. Motor is 5/5 in bilateral upper and lower extremities proximal to distal. No sensory deficits. HEENT: Face is symmetric. Pupils are equal and reactive. Extraocular movements are intact. NECK: Supple. No JVD. No thyromegaly. No submental, submandibular, pre- /postauricular, occipital or supraclavicular lymphadenopathy. CHEST: Normal chest expansion. No Telemetry. LUNGS: Absence of any rales, rhonchi or any wheezing. CARDIOVASCULAR: Regular. S1 and S2 normal. No appreciable rubs, murmurs or ga llops. ABDOMEN: Soft, nontender, and nondistended. There is no rebound, voluntary guarding, or rigidity. : Deferred. [place] cath with yellow urine EXTREMITIES: Non-edematous and not cyanotic. No clubbing. Good capillary refill. SKIN: No skin breakdown. skin tear to bilateral arm. ecchymosis Vital Sign (Last 24 Hours) 09/01/24 09/01/24 11:16 12:58 Temp 97.5 Pulse 84 Resp 12 B/P (MAP) 138/55 Pulse Ox 96 O2 Delivery Room Air* O2 Flow Rate 0 FiO2 21 LABS: Laboratory: Test 09/01/24 11:35 09/01/24 11:21 Range/Units White Blood Count 8.3 4.8-10.8 K/uL Red Blood Count 3.86 L 4.00-5.50 MIL/uL Hemoglobin 12.1 12.0-16.0 g/dL Hematocrit 33.3 L 36-48 % Mean Corpuscular Volume 86.3 79-99 fL Mean Corpuscular Hemoglobin 31.3 27.0-33.0 pg Mean Corpuscular Hemoglobin Concent 36.3 H 32.0-36.0 g/dL Red Cell Distribution Width 14.6 11.0-15.5 % Platelet Count 269 130-400 K/uL Mean Platelet Volume 9.9 7.5-10.5 fL Immature Granulocyte % (Auto) 0.2 0-1 % Neutrophils (%) (Auto) 88.0 H 40.0-77.0 % Lymphocytes (%) (Auto) 7.5 L 21.0-51.0 % Monocytes (%) (Auto) 4.1 3.0-13.0 % Eosinophils (%) (Auto) 0.0 0.0-8.0 % Basophils (%) (Auto) 0.2 0.0-5.0 % Neutrophils # (Auto) 7.3 1.8-7.7 K/uL Lymphocytes # (Auto) 0.6 L 1.0-4.8 K/uL Monocytes # (Auto) 0.3 0.1-1.0 K/uL Eosinophils # (Auto) 0.00 0.00-0.70 K/uL Basophils # (Auto) 0.02 0.00-0.20 K/uL Absolute Immature Granulocyte (auto 0.02 0-1 K/uL Nucleated Red Blood Cells 0.0 0.0-0.19 % Sodium Level 140 136-145 mmol/L Potassium Level 2.7 *L 3.5-5.1 mmol/L Chloride Level 101 101-111 mmol/L Carbon Dioxide Level 28 21-32 mmol/L Blood Urea Nitrogen 12 7-18 mg/dL Creatinine 0.6 0.5-1.0 mg/dL Glomerular Filtration Rate Calc 88 >90 mL/min Random Glucose 109 H 70-105 mg/dL Total Calcium 9.5 8.5-10.1 mg/dL Magnesium Level 2.90 H 1.80-2.40 mg/dL Total Bilirubin 0.9 0.2-1.0 mg/dL Aspartate Amino Transf (AST/SGOT) 26 10-37 U/L Alanine Aminotransferase (ALT/SGPT) 20 12-78 U/L Alkaline Phosphatase 86 50-136 U/L Total Protein 7.5 6.0-8.3 g/dL Albumin 3.6 3.5-5.0 g/dL Urine Color YELLOW YELLOW Urine Appearance CLEAR CLEAR Urine pH 5.5 5.0-8.0 Urine Specific [place] 1.016 1.001-1.031 Urine Protein 30 H NEGATIVE mg/dL Urine Glucose (UA) NEGATIVE NEGATIVE mg/dL Urine Ketones 10 H NEGATIVE mg/dL Urine Occult Blood NEGATIVE NEGATIVE Urine Nitrate NEGATIVE NEGATIVE Urine Bilirubin NEGATIVE NEGATIVE mg/dL Urine Urobilinogen 0.2 0.2-1.0 mg/dL Urine Leukocyte Esterase NEGATIVE NEGATIVE Ankur/uL Urine RBC 0-1 0-1 /HPF Urine WBC 0-1 0-1 /HPF Urine Squamous Epithelial Cells RARE 0-2 /HPF Urine Bacteria None None Seen /HPF Urine Hyaline Casts 2-5 H 0-1 /LPF /LPF DIAGNOSTICS / RADIOLOGY: [ ] REASON: ABD PAIN ORDERING PHYSICIAN: NOBLE GENTILE MD PROCEDURE: ABD PEL WO - CT ABDOMEN/PELVIS W/O CONTRAST CT ABDOMEN/PELVIS W/O CONTRAST HISTORY: Abdominal pain COMPARISON: None TECHNIQUE: Multiple sequential axial images of the abdomen and pelvis were obtained from the dome of the diaphragm through symphysis pubis. Patient was not given contrast through intravenous route. Oral contrast was not given. FINDINGS: There are bilateral pleural effusions with compressive atelectasis. COPD changes are seen. There is no evidence of parenchymal disease or pulmonary nodule of the visualized lower lungs. Degenerative changes of the thoracolumbar spine are present. The heart is not enlarged. The liver, spleen, adrenal glands and pancreas are unremarkable. There is no evidence of hydronephrosis bilaterally. No evidence of renal stone is seen. Extensive colonic distention is seen may be related to distal colon obstruction versus constipation. Fecal material is seen in the colon. There are normal size retroperitoneal and mesenteric lymph nodes. No ascites is seen. Atherosclerotic changes are present. There is anasarca. Appendix is not seen. There is diverticulosis. The study is limited due to cachexia. Pelvic sidewalls are symmetric bilaterally. Bladder is well distended without wall thickening. IMPRESSION: 1. Extensive colonic distention is seen may be related to distal colon obstruction versus constipation. Fecal material is seen in the colon. Bilateral pleural effusions. ASSESSMENT: distal colon obstruction versus constipation. 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 POA Nausea and vomiting POA Electrolytes derangement Hyponatremia hypokalemia POA Dehydration POA Debility, frailty, deconditioning, POA severe protein calorie malnutrition POA DNR/DNI POA History of hypertension, POA History of hyperlipidemia, POA History of type 2 diabetes mellitus, POA History of hypothyroidism, POA History of peripheral vascular disease, POA PLAN: admit to [facility] surgical floor peoplesoft consultant; Dr Ish Sharp (GI). will defer bowel regiment NPO status; Banana bag with mL/hour Thiamine 100 mg for five days Dietitian consulted Speech consulted aspiration precautions head of the bed at 45 at all times Replace electrolytes to keep potassium above 4.0 and magnesium above 2.0. ac/hs monitoring with SSRI 1/2 scale Labs in a.m. CBC CMP magnesium fall precaution, call light in reach decubitus precaution: reposition every 4 hrs aggressive off loading. PRN: MEDICATIONS Tylenol 650 mg po every 4 hrs for fever Zofran 4 mg IV every 6 hrs for n/v Hydralazine 5mg IV every 4 hrs systolic pressure > 160 Pain management: Supportive measures: DVT ppx, with SCD GI ppx PPIs Protonix RN pending to reviewed home medications all questions answered time spent: > 35 min Supervising MD: Dr. Molina c/d [facility] 1. Which of the following were discussed? Hospice Care - Yes / No Therapeutic options - Yes / No Advance Directives - Yes / No Other discussions - DNR DNI 2. Discussed with who? patient 3. Voluntary nature of this service was explained to the patient? Yes / No 4. Amount of time spent - ____25 min ___ 5. Reviewed by Physician? (if this service was performed by NPP) Yes / No ATTESTATION BY PHYSICIAN I have seen and examined the patient. I reviewed the documentation, medical decision making, and treatment plan as noted by the mid-level provider above. I agree with the findings and plan of care. DELMY MOLINA MD, ELIZABETH [employer] TEMPERER Sep 01, 2024 13:29
[2024-09-01] MEDS ORDERED: acetaMINOPHEN 325 MG TAB PO PRN (13:30)
[2024-09-01] MEDS ORDERED: ketOROlac 15MG/ML VIAL (15MG/ML) IV PRN (13:30)
[2024-09-01] MEDS ORDERED: MAGNESIUM 2GM PREMIX 50ML 50 ML IV PRN (13:30)
[2024-09-01] MEDS: 0.9%NACL 1000ML 1,000 ML IV SCH (13:34)
--- NOTE | 2024-09-01 15:12 | NUR ---
GI CONSULT: patient report given to Cheyenne BORJAS
--- NOTE | 2024-09-01 15:20 | NUR ---
SPEECH NOTE: Orders to evaluate patient's swallowing function received; however, as per nurse Cullen, patient NPO due to large bowel obstruction and pending GI consult. [employer] PORTFOLIO MANAGER will follow up. All questions answered. Addendum: 09/01/[address] [facility] Amended: Links added.
[2024-09-01] MEDS: M.V.I. IV [ADULT] 10 ML, FOLic ACID 5 MG/ML VIAL 1 MG, THIAMINE HCL 100 MG in 0.9%NACL ... IV SCH (15:32)
[2024-09-01] MEDS: INSULIN humuLIN R 100 UNIT/ML 3ML SQ SCH (16:30)
--- NOTE | 2024-09-01 18:39 | NUR ---
GI: AGUILA BORJAS AT BEDSIDE
[2024-09-01] MEDS: PoTASSium chloRIDE 20MEQ/100ML 100 ML IV PRN (20:14)
--- NOTE | 2024-09-01 21:18 | CONS ---
GASTROENTEROLOGY CONSULTATION NOTE Date of Consultation: Sep 01, 2024 Time of Consultation: 21:17 History of Present Illness: This is an 84-year-old female with past medical history of CAD, dementia, diabetes, hyperlipidemia, hypertension who presented due to abdominal pain and distention. Patient has not had bowel movement for the past 2 days and began to have nausea and vomiting. Patient was seen at bedside and rectal exam was done with no evidence of severe fecal impaction. CT abdomen and pelvis revealing extensive colonic distention which may be related to distal colon obstruction versus constipation. Review of Systems: CONSTITUTIONAL: No malaise or change in sensation of wellbeing. ENMT: No rhinorrhea, otorrhea, sinus pain, ear ache. CARDIOVASCULAR: No angina, palpitations, orthopnea or paroxysmal dyspnea. RESPIRATORY: No SOB. GASTROINTESTINAL: No abdominal pain, nausea, vomiting, diarrhea, hematemesis, melena or change in the patient's habitual bowel movements consistency/number. GENITOURINARY: No dysuria, hematuria or change in bladder continence. MUSCULOSKELETAL: No new muscle pain or decrease in muscular strength. No new joint swelling, redness or tenderness. SKIN: No new rash. Past Medical History: [ ] Past Surgical History: [ ] Past Social History: [ ] Family History: [ ] Coded Allergies: No Known Allergies (Unverified Allergy, Unknown, 01/22/18) Physical Exam: GEN: Awake, alert, oriented in person, time and place, and in no acute distress. HEENT: No sinus tenderness. Tympanic membranes were not examined. No rhinorrhea. Oral pharyngeal mucosa is pink, moist and within normal limits. Neck is supple with no cervical lymphadenopathy, thyromegaly or JVD. CHEST: Inspection, palpation and percussion of the chest were unremarkable. Lung auscultation revealed normal breath sounds bilaterally. CARDIAC: PMI is within normal limits. Heart sounds are regular. Normal S1, S2. No gallop or murmur. ABD: Soft, non-tender and not distended. No peritoneal signs on palpation. No organomegaly. Normal bowel sounds. EXT: No cyanosis or clubbing. No edema. SKIN: Intact. No rashes. JOINTS: No evidence of synovitis or acute arthritis. NEURO: Alert and oriented to name, place and person. Cranial nerve examination is unremarkable. No focal motor deficits. Normal speech. Gait is normal. Strength is normal. Vital Sign (Last 24 Hours) 11/19/24 11/19/24 11:16 18:27 Temp 97.5 Pulse 90 Resp 14 B/P (MAP) 141/56 Pulse Ox 99 O2 Delivery Room Air* O2 Flow Rate 0 FiO2 21 Laboratory: [ ] Laboratory: Test 09/01/24 20:01 09/01/24 11:35 09/01/24 11:21 Range/Units Whole Blood Glucose 93 70-110 MG/DL White Blood Count 8.3 4.8-10.8 K/uL Red Blood Count 3.86 L 4.00-5.50 MIL/uL Hemoglobin 12.1 12.0-16.0 g/dL Hematocrit 33.3 L 36-48 % Mean Corpuscular Volume 86.3 79-99 fL Mean Corpuscular Hemoglobin 31.3 27.0-33.0 pg Mean Corpuscular Hemoglobin Concent 36.3 H 32.0-36.0 g/dL Red Cell Distribution Width 14.6 11.0-15.5 % Platelet Count 269 130-400 K/uL Mean Platelet Volume 9.9 7.5-10.5 fL Immature Granulocyte % (Auto) 0.2 0-1 % Neutrophils (%) (Auto) 88.0 H 40.0-77.0 % Lymphocytes (%) (Auto) 7.5 L 21.0-51.0 % Monocytes (%) (Auto) 4.1 3.0-13.0 % Eosinophils (%) (Auto) 0.0 0.0-8.0 % Basophils (%) (Auto) 0.2 0.0-5.0 % Neutrophils # (Auto) 7.3 1.8-7.7 K/uL Lymphocytes # (Auto) 0.6 L 1.0-4.8 K/uL Monocytes # (Auto) 0.3 0.1-1.0 K/uL Eosinophils # (Auto) 0.00 0.00-0.70 K/uL Basophils # (Auto) 0.02 0.00-0.20 K/uL Absolute Immature Granulocyte (auto 0.02 0-1 K/uL Nucleated Red Blood Cells 0.0 0.0-0.19 % White Cell Morphology Comment See comments Red Blood Cell Morphology ANISO 1+ Sodium Level 140 136-145 mmol/L Potassium Level 2.7 *L 3.5-5.1 mmol/L Chloride Level 101 101-111 mmol/L Carbon Dioxide Level 28 21-32 mmol/L Blood Urea Nitrogen 12 7-18 mg/dL Creatinine 0.6 0.5-1.0 mg/dL Glomerular Filtration Rate Calc 88 >90 mL/min Random Glucose 109 H 70-105 mg/dL Total Calcium 9.5 8.5-10.1 mg/dL Magnesium Level 2.90 H 1.80-2.40 mg/dL Total Bilirubin 0.9 0.2-1.0 mg/dL Aspartate Amino Transf (AST/SGOT) 26 10-37 U/L Alanine Aminotransferase (ALT/SGPT) 20 12-78 U/L Alkaline Phosphatase 86 50-136 U/L Total Protein 7.5 6.0-8.3 g/dL Albumin 3.6 3.5-5.0 g/dL Urine Color YELLOW YELLOW Urine Appearance CLEAR CLEAR Urine pH 5.5 5.0-8.0 Urine Specific [place] 1.016 1.001-1.031 Urine Protein 30 H NEGATIVE mg/dL Urine Glucose (UA) NEGATIVE NEGATIVE mg/dL Urine Ketones 10 H NEGATIVE mg/dL Urine Occult Blood NEGATIVE NEGATIVE Urine Nitrate NEGATIVE NEGATIVE Urine Bilirubin NEGATIVE NEGATIVE mg/dL Urine Urobilinogen 0.2 0.2-1.0 mg/dL Urine Leukocyte Esterase NEGATIVE NEGATIVE Ankur/uL Urine RBC 0-1 0-1 /HPF Urine WBC 0-1 0-1 /HPF Urine Squamous Epithelial Cells RARE 0-2 /HPF Urine Bacteria None None Seen /HPF Urine Hyaline Casts 2-5 H 0-1 /LPF /LPF Current Medications Medications (Trade) Dose Ordered Sig/Emily Route PRN Reason Start Time Stop Time Status Last Admin Dose Admin Acetaminophen (TYLenol 325MG TAB) 650 mg Q4H PRN PO TEMPERATURE GREATER THAN 101.5 09/01/24 13:30 10/01/24 13:29 Hydralazine HCl (APRESOLine 20MG INJ) 5 mg Q4H PRN IV ADMINISTER FOR SBP > 160 09/01/24 13:30 10/01/24 13:29 Insulin Human Regular (humuLIN R 100 UNIT/ML 3ML) INSULIN SLIDING SCAL... ACHS SQ 09/01/24 16:30 10/01/24 16:29 Ketorolac Tromethamine (toRADol) 15 mg Q6H PRN IV MODERATE PAIN (4-6) 09/01/24 13:30 09/06/24 13:29 Magnesium Sulfate 50 ml @ 0 mls/hr PROTOCOL PRN IV low mag level 09/01/24 13:30 10/01/24 13:29 Multivitamins/ Minerals 10 ml/ Folic Acid 1 mg/ Thiamine HCl 100 mg/Sodium Chloride 1,010 ml @ 50 mls/hr DAILY IV 09/02/24 09:00 09/05/24 05:11 09/01/24 15:32 50 MLS/HR Pantoprazole Sodium (PROTonix 40MG INJ) 40 mg DAILY IVP 09/02/24 09:00 10/02/24 08:59 Potassium Chloride 100 ml @ 50 mls/hr AD PRN IV POTASSIUM PROTOCOL 09/01/24 13:30 10/01/24 13:29 09/01/24 20:14 50 MLS/HR Sodium Chloride 1,000 ml @ 75 mls/hr [id number] IV 09/01/24 13:30 09/01/24 14:57 DC 09/01/24 13:34 75 MLS/HR Thiamine HCl (Vitamin B-1) 100 mg DAILY IVP 09/02/24 09:00 10/02/24 08:59 Diagnostics / Radiology: [COPY/PASTE HERE IF NO REPORTS PLEASE DELETE SECTION] Assessment: Constipation vs distal bowel obstruction Plan: KUVince in AM Surgery consult AMANDA PIKE MUSIC LIBRARIAN Sep 01, 2024 21:17
[2024-09-01] MEDS: BisaCODYL 10 MG SUPP.RECT RC ONE (22:34)
[2024-09-02] VITALS (7 sets, daily range): BP systolic 125–154; BP diastolic 54–74; PULSE 58–84; RESP 16–17; TEMP 97.8–98.4; O2SAT 96
--- NOTE | 2024-09-02 01:02 | HMCIMG ---
ABD 1VW HISTORY: Constipation COMPARISON: None FINDINGS: A frontal projection of the abdomen was obtained. There is colonic distention. Fecal material is seen in the colon. Degenerative changes of the thoracolumbar spine are noted. IMPRESSION: 1. Colonic distention. Large amount of fecal material is seen in the colon suggestive of constipation.
--- NOTE | 2024-09-02 01:08 | NUR ---
ATTEMPTED TO CALL REPORT TO WESLEY CONN PENDING CALL BACK.
--- NOTE | 2024-09-02 02:14 | NUR ---
HAND OFF REPORT GIVEN TO WESLEY CONN AT THIS TIME.
[2024-09-02] MEDS: DEXTROSE 50%-WATER 50 ML DISP.SYRIN IV PRN (05:42)
[2024-09-02] MEDS ORDERED: GLUCAGON 1MG KIT 1 MG ML IM PRN (06:00)
[2024-09-02 06:22] LABS: BASOPHILS # (AUTO) 0.02 K/uL (0.00-0.20); BASOPHILS % (AUTO) 0.3 % (0.0-5.0); EOSINOPHILS # (AUTO) 0.02 K/uL (0.00-0.70); EOSINOPHILS % (AUTO) 0.3 % (0.0-8.0); HEMATOCRIT 32.2 % (36-48); IMMATURE GRANULOCYTE ABSOLUTE 0.03 K/uL (0-1); LYMPHOCYTES # (AUTO) 0.7 K/uL (1.0-4.8); LYMPHOCYTES % (AUTO) 8.3 % (21.0-51.0); MEAN CORPUSCULAR HEMOGLOBIN 31.4 pg (27.0-33.0); MEAN CORPUSCULAR HGB CONC 34.8 g/dL (32.0-36.0); MEAN CORPUSCULAR VOLUME 90.2 fL (79-99); MONOCYTES # (AUTO) 0.3 K/uL (0.1-1.0); MONOCYTES % (AUTO) 4.3 % (3.0-13.0); NEUTROPHILS # (AUTO) 6.8 K/uL (1.8-7.7); NEUTROPHILS % (AUTO) 86.4 % (40.0-77.0); PLATELET COUNT (AUTO) 231 K/uL (130-400); RED BLOOD CELL COUNT(AUTO) 3.57 MIL/uL (4.00-5.50); RED CELL DISTRIBUTION WIDTH 14.7 % (11.0-15.5); WHITE BLOOD COUNT (AUTO) 7.9 K/uL (4.8-10.8)
[2024-09-02 06:34] LABS: ALBUMIN 3.2 g/dL (3.5-5.0); BILIRUBIN,TOTAL 0.8 mg/dL (0.2-1.0); CREATININE 0.5 mg/dL (0.5-1.0); MAGNESIUM 2.7 mg/dL (1.80-2.40); POTASSIUM 3.8 mmol/L (3.5-5.1); TOTAL PROTEIN, SERUM 6.6 g/dL (6.0-8.3)
[2024-09-02] MEDS: PEG 3350/NA SULF,BICARB,CL/KCL 4000 ML SOLN PO STA (08:29)
--- NOTE | 2024-09-02 09:56 | PN ---
[facility] PROGRESS NOTE Date of Service: Sep 02, 2024 Time of Service: 09:55 SUBJECTIVE: [ ] Admission date 09 01 2024 PCP; Dr aD Reilly MD This is a 84-year-old female was brought in by family members presented with abdominal pain distention. Family reports patient has not been having bowel movements for the past two days. She started with nausea and vomiting with abdominal distention. Patient appears emaciated, fragile and debilitated. ER workup imaging abdomen and pelvis Extensive colonic distention is seen may be related to distal colon obstruction versus constipation. Bladder scan was done urinary retention Corrales catheter was placed. Dr. Molina discussed DNR status with family they we will proceed with DNR DNI on this admission. GI has been consulted we will follow the recommendations. 09/02/2024 PATIENT IS SEEN AND EXAMINED WITH DR. MOLINA. PATIENT'S APPEARS TO BE COMFORTABLE AT THIS TIME. CONTINUES WITH BANANA BAG WITH MULTIVITAMIN. GI IS RECOMMENDING surgeon to evaluate patient Dr. Garcia surgeon order GoLYTELY however patient unable to drink to fragile NG tube was discussed with daughter at bedside she refused. Radha CONN primary nurse we will reach out to surgeon. REVIEW OF SYSTEMS CONSTITUTIONAL: Denies fevers, chills, or night sweats. No unintentional weight loss reported. NEUROLOGICAL: Denies headache, amaurosis fugax, motor weakness, sensory deficit, vertigo/spinning sensation, gait abnormalities, or tremors. ENT: No hearing loss, otalgia, otorrhea, rhinitis, rhinorrhea, hoarseness, or sore throat. CARDIOVASCULAR: Denies any exertional angina, dyspnea on exertion, orthopnea, paroxysmal nocturnal dyspnea, palpitations, life-threatening arrhythmias, claudication. PULMONARY: Denies any shortness of breath, cough, phlegm/sputum, hemoptysis, pleuritic chest pain. SLEEP: Denies morning headaches, daytime somnolence or napping. Denies difficulty falling asleep, staying asleep, waking from sleep. Denies knowledge of snoring. GASTROINTESTINAL: Denies any type of dysphagia to either liquids or solids. Denies nausea, vomiting, pyrosis, early satiety, abdominal pain, diarrhea, constipation, or changes in stool consistency or caliber. Denies coffee-ground e mesis, hematemesis, hematochezia, or melanotic stools. GENITOURINARY: Denies frequency, urgency, nocturia, hematuria or incontinence (Storage/Irritative symptoms.) Low urinary stream, straining to void, urinary intermittency or hesitancy, splitting of the voiding stream, terminal dribbling. ENDOCRINOLOGIC: Denies polyuria, polydipsia, polyphagia or heat/cold intolerances. HEMATOLOGIC: Denies thrombophilia/previous clots, or coagulopathy/bleeding disorders. ONCOLOGIC: Denies personal history of malignancy. DERMATOLOGIC: Denies rashes or pruritus. PSYCHIATRIC: Denies any suicidal or homicidal ideation. Denies hallucinations. PHYSICAL EXAM GENERAL APPEARANCE: chronically ill, emaciated cachexia NEUROLOGICAL: Cranial nerves II-XII grossly intact. Motor is 5/5 in bilateral upper and lower extremities proximal to distal. No sensory deficits. HEENT: Face is symmetric. Pupils are equal and reactive. Extraocular movements are intact. NECK: Supple. No JVD. No thyromegaly. No submental, submandibular, pre- /postauricular, occipital or supraclavicular lymphadenopathy. CHEST: Normal chest expansion. No Telemetry. LUNGS: Absence of any rales, rhonchi or any wheezing. CARDIOVASCULAR: Regular. S1 and S2 normal. No appreciable rubs, murmurs or gallops. ABDOMEN: Soft, nontender, and nondistended. There is no rebound, voluntary guarding, or rigidity. : Deferred. Corrales cath with yellow urine EXTREMITIES: Non-edematous and not cyanotic. No clubbing. Good capillary refill. SKIN: No skin breakdown. skin tear to bilateral arm. ecchymosis Vital Signs (last 8hr) Date Time Temp Pulse Resp B/P (MAP) Pulse Ox O2 Delivery O2 Flow Rate FiO2 09/02/24 08:00 97.9 81 16 146/58 95 Room Air 09/02/24 02:25 97.9 58 17 154/74 94 Room Air 09/02/24 02:25 Room Air* 0 21 09/02/24 02:15 80 13 135/59 95 Room Air* 0 21 LABS: Laboratory: Test 09/02/24 06:34 09/02/24 05:23 09/01/24 11:35 09/01/24 11:21 Range/Units Whole Blood Glucose 162 #H 70-110 MG/DL Bedside Glucose Comment Notified Nurse White Blood Count 7.9 4.8-10.8 K/uL Red Blood Count 3.57 L 4.00-5.50 MIL/uL Hemoglobin 11.2 L 12.0-16.0 g/dL Hematocrit 32.2 L 36-48 % Mean Corpuscular Volume 90.2 79-99 fL Mean Corpuscular Hemoglobin 31.4 27.0-33.0 pg Mean Corpuscular Hemoglobin Concent 34.8 32.0-36.0 g/dL Red Cell Distribution Width 14.7 11.0-15.5 % Platelet Count 231 130-400 K/uL Mean Platelet Volume 10.5 7.5-10.5 fL Immature Granulocyte % (Auto) 0.4 0-1 % Neutrophils (%) (Auto) 86.4 H 40.0-77.0 % Lymphocytes (%) (Auto) 8.3 L 21.0-51.0 % Monocytes (%) (Auto) 4.3 3.0-13.0 % Eosinophils (%) (Auto) 0.3 0.0-8.0 % Basophils (%) (Auto) 0.3 0.0-5.0 % Neutrophils # (Auto) 6.8 1.8-7.7 K/uL Lymphocytes # (Auto) 0.7 L 1.0-4.8 K/uL Monocytes # (Auto) 0.3 0.1-1.0 K/uL Eosinophils # (Auto) 0.02 0.00-0.70 K/uL Basophils # (Auto) 0.02 0.00-0.20 K/uL Absolute Immature Granulocyte (auto 0.03 0-1 K/uL Nucleated Red Blood Cells 0.0 0.0-0.19 % Sodium Level 146 H 136-145 mmol/L Potassium Level 3.8 3.5-5.1 mmol/L Chloride Level 108 101-111 mmol/L Carbon Dioxide Level 29 21-32 mmol/L Blood Urea Nitrogen 12 7-18 mg/dL Creatinine 0.5 0.5-1.0 mg/dL Glomerular Filtration Rate Calc 92 >90 mL/min Random Glucose 64 L 70-105 mg/dL Total Calcium 8.6 8.5-10.1 mg/dL Magnesium Level 2.70 H 1.80-2.40 mg/dL Total Bilirubin 0.8 0.2-1.0 mg/dL Aspartate Amino Transf (AST/SGOT) 23 10-37 U/L Alanine Aminotransferase (ALT/SGPT) 16 12-78 U/L Alkaline Phosphatase 76 50-136 U/L Total Protein 6.6 6.0-8.3 g/dL Albumin 3.2 L 3.5-5.0 g/dL White Cell Morphology Comment See comments Red Blood Cell Morphology ANISO 1+ Urine Color YELLOW YELLOW Urine Appearance CLEAR CLEAR Urine pH 5.5 5.0-8.0 Urine Specific [place] 1.016 1.001-1.031 Urine Protein 30 H NEGATIVE mg/dL Urine Glucose (UA) NEGATIVE NEGATIVE mg/dL Urine Ketones 10 H NEGATIVE mg/dL Urine Occult Blood NEGATIVE NEGATIVE Urine Nitrate NEGATIVE NEGATIVE Urine Bilirubin NEGATIVE NEGATIVE mg/dL Urine Urobilinogen 0.2 0.2-1.0 mg/dL Urine Leukocyte Esterase NEGATIVE NEGATIVE Ankur/uL Urine RBC 0-1 0-1 /HPF Urine WBC 0-1 0-1 /HPF Urine Squamous Epithelial Cells RARE 0-2 /HPF Urine Bacteria None None Seen /HPF Urine Hyaline Casts 2-5 H 0-1 /LPF /LPF Current Medications Medications (Trade) Dose Ordered Sig/Emily Route PRN Reason Start Time Stop Time Status Last Admin Dose Admin Acetaminophen (TYLenol 325MG TAB) 650 mg Q4H PRN PO TEMPERATURE GREATER THAN 101.5 09/01/24 13:30 10/01/24 13:29 Dextrose (D50w) 50 ml AD PRN IV HYPOGLYCEMIA PROTOCOL 09/02/24 06:00 10/02/24 05:59 09/02/24 05:42 50 ML Glucagon (Glucagon 1mg Kit) 1 mg AD PRN IM HYPOGLYCEMIA PROTOCOL 09/02/24 06:00 10/02/24 05:59 Hydralazine HCl (APRESOLine 20MG INJ) 5 mg Q4H PRN IV ADMINISTER FOR SBP > 160 09/01/24 13:30 10/01/24 13:29 Insulin Human Regular (humuLIN R 100 UNIT/ML 3ML) INSULIN SLIDING SCAL... ACHS SQ 09/01/24 16:30 10/01/24 16:29 Ketorolac Tromethamine (toRADol) 15 mg Q6H PRN IV MODERATE PAIN (4-6) 09/01/24 13:30 09/06/24 13:29 Magnesium Sulfate 50 ml @ 0 mls/hr PROTOCOL PRN IV low mag level 09/01/24 13:30 10/01/24 13:29 Multivitamins/ Minerals 10 ml/ Folic Acid 1 mg/ Thiamine HCl 100 mg/Sodium Chloride 1,010 ml @ 50 mls/hr DAILY IV 09/02/24 09:00 09/05/24 05:11 09/01/24 15:32 50 MLS/HR Pantoprazole Sodium (PROTonix 40MG INJ) 40 mg DAILY IVP 09/02/24 09:00 10/02/24 08:59 Pharmacy Profile Note (Pharmacy Communication) 1 each AD MISC 09/02/24 10:00 09/02/24 09:44 DC Polyethylene Glycol/ Electrolytes (Golytely/Colyte Soln) 4,000 ml ONCE STAT PO 09/02/24 08:29 09/02/24 08:45 DC Potassium Chloride 100 ml @ 50 mls/hr AD PRN IV POTASSIUM PROTOCOL 09/01/24 13:30 10/01/24 13:29 09/02/24 04:27 50 MLS/HR Sodium Chloride 1,000 ml @ 75 mls/hr [id number] IV 09/01/24 13:30 09/01/24 14:57 DC 09/01/24 13:34 75 MLS/HR Thiamine HCl (Vitamin B-1) 100 mg DAILY IVP 09/02/24 09:00 10/02/24 08:59 DIAGNOSTICS / RADIOLOGY: [ ] ASSESSMENT: distal colon obstruction versus constipation. 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 POA Nausea and vomiting POA Electrolytes derangement Hyponatremia hypokalemia hypernatremia POA Dehydration POA Debility, frailty, deconditioning, POA severe protein calorie malnutrition POA DNR/DNI POA History of hypertension, POA History of hyperlipidemia, POA History of type 2 diabetes mellitus, POA History of hypothyroidism, POA History of peripheral vascular disease, POA PLAN: admit to med surgical floor market consultant; Dr Ish Sharp (GI). Recommendations: surgeon DR Jose Sawyer daughter refused NG tube. KUB: noted NPO status; Banana bag with [id number] mL/hour Thiamine 100 mg for five days Dietitian follow recommendations Speech consulted aspiration precautions head of the bed at 45 at all times Replace electrolytes to keep potassium above 4.0 and magnesium above 2.0. ac/hs monitoring with SSRI 1/2 scale Labs in a.m. CBC CMP magnesium fall precaution, call light in reach decubitus precaution: reposition every 4 hrs aggressive off loading. PRN: MEDICATIONS Tylenol 650 mg po every 4 hrs for fever Zofran 4 mg IV every 6 hrs for n/v Hydralazine 5mg IV every 4 hrs systolic pressure > 160 Pain management: Supportive measures: DVT ppx, with SCD GI ppx PPIs Protonix RN pending to reviewed home medications all questions answered DNR /DNI: status Supervising MD: Dr. Molina c/d ATTESTATION BY PHYSICIAN I have seen and examined the patient. I reviewed the documentation, medical decision making, and treatment plan as noted by the mid-level provider above. I agree with the findings and plan of care. DELMY MOLINA MD, ELIZABETH NP Sep 02, 2024 09:56
[2024-09-02] MEDS ORDERED: PHARMACY COMMUNICATION MISC SCH (10:00)
[2024-09-02] MEDS ORDERED: COMPOUND IV REFRIGERATED 1 EACH IVSOLN MISC PRN (12:30)
[2024-09-02] MEDS: THIAMINE HCL 100 MG/ML 2ML VIAL IVP SCH (12:48)
[2024-09-02] MEDS: PANTOPrazole 40 MG/VIAL IVP SCH (12:48)
--- NOTE | 2024-09-02 13:29 | NUR ---
Nutritional Note: Chart, meds, and labs Reviewed. NPO status; Banana bag with mL/hour and Thiamine 100 mg for five days as per MD. patient NPO due to large bowel obstruction and pending GI consult. Recommend: -If pt able to advance to PO diet, include high fiber modification and PO supplement Glucerna w/ trays. -If unable to advance in diet, consider PPN/TPN, RD to f/u 1-2 days with recommendations. - Electrolyte replacements per protocol -Monitor PO intake%, wt, and labs -If No BM >3days consider bowel stimulant. - Please notify RD if additional nutrition concerns arise. SEE RD Nutritional Assessment for additional assessment information. Addendum: 09/02/24 at [address] Amended: Links added.
--- NOTE | 2024-09-02 15:53 | CONS ---
CONSULT NOTE: Consulting physician: Dr. Molina Consulting service: General surgery Reason for consultation: Constipation versus colonic obstruction History of present illness: This is an 84-year-old female with family at bedside with a history of dementia who has been consulted to surgery for concerning findings of colonic obstruction versus constipation. Patient with significant history of dementia currently resting room unable to get HPI at time of exam. No significant abdominal pain on physical exam however imaging reviewed and concerns of constipation noted. Family unaware of how long it has been since last bowel movement. GI on board at this time. Patient currently NPO Medical history: CAD, Dementia, Diabetes-Type II, High Cholesterol, Hypertension PAST SURGICAL HISTORY: PAST SOCIAL HISTORY: Denies smoking tobacco products and alcohol use lives with family FAMILY HISTORY: Noncontributory Coded Allergies: No Known Allergies (Unverified Allergy, Unknown, 01/22/18) Review of systems: General: No Fever, No Chills, No Night Sweats, No Fatigue, No Malaise, No Appetite, No Other HEENT: No Head Aches, No Visual Changes, No Eye Pain, No Ear Pain, No Dysphasia, No Sinus Congestion, No Post Nasal Drip, No Sore Throat, No Other Pulmonary: No Dyspnea, No Cough, No Pleuritic Chest Pain, No Other Cardiovascular: No: Chest Pain, Palpitations, Orthopnea, Paroxysmal No Dyspnea, Edema, Lt Headedness, Other Gastrointestinal: No: Nausea, Vomiting, Diarrhea, Constipation, Melena, Hematochezia, Other Genitourinary: No Dysuria, No Frequency, No Incontinence, No Hematuria, No Retention, No Other Musculoskeletal: No: other, neck pain, shoulder pain, arm pain, back pain, hand pain, leg pain, foot pain Skin: No Urticaria, No Rash, No Other Neurological: No: Weakness, Numbness, Incoordination, Change in speech, Confusion, Seizures, Other Physical exam: General: Lethargic and cachectic chronically ill Heart: Regular rate and rhythm} Lungs: Clear to auscultation no distress Abdomen: [Soft, nontender, nondistended Assessment: This is an 84-year-old female with concerns of severe constipation concerns of fecal impaction Plan: At this point in time no immediate surgical intervention plan Patient to continue with medical recommendations as well as GI recommendations for disimpaction Dr. Garcia to be updated in patient's status At this point in time patient should remain NPO until further indicated on until bowel function returns Dr. Garcia and surgical team to follow patient closely JAZMÍN CATES Jr. Sep 02, 2024 15:53
--- NOTE | 2024-09-02 16:15 | NUR ---
BEDSIDE SWALLOW EVAL COMPLETED. +s/s of aspiration. Recommend pureed solids, honey thick liquids, and pills crushed with pureed solids as tolerated. Compensatory strategies: 1. sit upright during oral intake 2. small bites/sips 3. slow oral intake 4. frequent small meals 5. liquids via spoon 6. no straws ENTRY LEVEL JAVA DEVELOPER reviewed results and recommendations with patient, family and nurse Radha. ENTRY LEVEL JAVA DEVELOPER educated patient on risks and consequences of aspiration. Speech therapy warranted at this time. All questions answered. RECOMMENDATIONS: Dysphagia Therapy 1-3X week to increase oral motor strength and pharyngeal swallow: LTG#1: Pt will tolerate least restrictive diet to meet nutrition/hydration with no s/s of aspiration. LTG#2: Skilled education Pt/family/staff STG#1: Pt will participate in laryngeal elevation/excursion exercises with 90% accuracy. STG#2: Pt will participate in tongue base retraction exercises with 90% acc/with Min A. STG#3: Pt will participate in oral motor exercises with 90% acc/with Min A. STG#4: Pt will tolerate modified diet of pureed solids and honey thick liquids with no overt s/s of aspiration. STG#5: Pt will participate in advanced trials of mechanical soft/finely chopped textures with no overt s/s of aspiration. STG#6: Skilled education Pt/family/staff. Addendum: 09/02/[address] RUBEN URBANO Amended: Links added.
--- NOTE | 2024-09-02 17:10 | NUR ---
ENEMA fleets enema administered at this time with pt in lt lateral position. tolerated well and had small amount of stool evacuated and was able to do some partial disimpaction. bed in low position, family at bedside and call james within reach. will monitor.
[2024-09-02] MEDS: PEG 3350/NA SULF,BICARB,CL/KCL 4000 ML SOLN PO ONE (18:01)
--- NOTE | 2024-09-02 19:57 | NUR ---
INITIAL/DCP-HOME Met w pt and dtr Sukhdeep Stern & dtr Margarita Stern at the bedside. Pt lives w her dtr Bárbara Jarred @ [address] [place] [address]. Pt is bedbound and requires assist for ADLs. She receives approx 42hrs/wk of provider services. Provider is from [facility]. Pt also receives respite hours but family is unsure #of hrs. DME includes wc and chair. Pts preferred pharmacy is [facility]. They use medical transport for transportation needs. Discussed dc options avail if needed including SNF. Family mentions that approx 1yr ago pt was on Hospice but not any longer. They prefer to take pt home at discharge. Addendum: 09/02/24 at 2007 by LESLIE JOHNSON CM Amended: Links added.
--- NOTE | 2024-09-02 20:30 | NUR ---
ENEMA: PT GIVEN TAP WATER ENEMA AT THIS TIME, SMALL AMOUNTS OF STOOL AND TAP WATER COMING OUT. WILL ASSESS IN ANOTHER 3-4 HOURS.
--- NOTE | 2024-09-02 22:01 | PN ---
GASTROENTEROLOGY PROGRESS NOTE Date of Visit: Sep 02, 2024 Time of Visit: 22:01 Events / Notes: [ ] Review of Systems: CONSTITUTIONAL: No malaise or change in sensation of wellbeing. ENMT: No rhinorrhea, otorrhea, sinus pain, ear ache. CARDIOVASCULAR: No angina, palpitations, orthopnea or paroxysmal dyspnea. RESPIRATORY: No SOB. GASTROINTESTINAL: No abdominal pain, nausea, vomiting, diarrhea, hematemesis, melena or change in the patient's habitual bowel movements consistency/number. GENITOURINARY: No dysuria, hematuria or change in bladder continence. MUSCULOSKELETAL: No new muscle pain or decrease in muscular strength. No new joint swelling, redness or tenderness. SKIN: No new rash. Physical Exam: GEN: Awake, alert, oriented in person, time and place, and in no acute distress. HEENT: No sinus tenderness. Tympanic membranes were not examined. No rhinorrhea. Oral pharyngeal mucosa is pink, moist and within normal limits. Neck is supple with no cervical lymphadenopathy, thyromegaly or JVD. CHEST: Inspection, palpation and percussion of the chest were unremarkable. Lung auscultation revealed normal breath sounds bilaterally. CARDIAC: PMI is within normal limits. Heart sounds are regular. Normal S1, S2. No gallop or murmur. ABD: Soft, non-tender and not distended. No peritoneal signs on palpation. No organomegaly. Normal bowel sounds. EXT: No cyanosis or clubbing. No edema. SKIN: Intact. No rashes. JOINTS: No evidence of synovitis or acute arthritis. NEURO: Alert and oriented to name, place and person. Cranial nerve examination is unremarkable. No focal motor deficits. Normal speech. Gait is normal. Strength is normal. Vital Signs (last 8hr) Date Time Temp Pulse Resp B/P (MAP) Pulse Ox O2 Delivery O2 Flow Rate FiO2 09/02/24 19:50 98.4 73 16 126/57 96 Room Air 21 09/02/24 16:15 N/A Room Air 09/02/24 16:00 97.9 79 16 146/65 97 Laboratory: [ ] Laboratory: Test 09/02/24 19:36 09/02/24 06:34 09/02/24 05:23 09/01/24 11:35 Range/Units Whole Blood Glucose 90 70-110 MG/DL Bedside Glucose Comment Notified Nurse White Blood Count 7.9 4.8-10.8 K/uL Red Blood Count 3.57 L 4.00-5.50 MIL/uL Hemoglobin 11.2 L 12.0-16.0 g/dL Hematocrit 32.2 L 36-48 % Mean Corpuscular Volume 90.2 79-99 fL Mean Corpuscular Hemoglobin 31.4 27.0-33.0 pg Mean Corpuscular Hemoglobin Concent 34.8 32.0-36.0 g/dL Red Cell Distribution Width 14.7 11.0-15.5 % Platelet Count 231 130-400 K/uL Mean Platelet Volume 10.5 7.5-10.5 fL Immature Granulocyte % (Auto) 0.4 0-1 % Neutrophils (%) (Auto) 86.4 H 40.0-77.0 % Lymphocytes (%) (Auto) 8.3 L 21.0-51.0 % Monocytes (%) (Auto) 4.3 3.0-13.0 % Eosinophils (%) (Auto) 0.3 0.0-8.0 % Basophils (%) (Auto) 0.3 0.0-5.0 % Neutrophils # (Auto) 6.8 1.8-7.7 K/uL Lymphocytes # (Auto) 0.7 L 1.0-4.8 K/uL Monocytes # (Auto) 0.3 0.1-1.0 K/uL Eosinophils # (Auto) 0.02 0.00-0.70 K/uL Basophils # (Auto) 0.02 0.00-0.20 K/uL Absolute Immature Granulocyte (auto 0.03 0-1 K/uL Nucleated Red Blood Cells 0.0 0.0-0.19 % Sodium Level 146 H 136-145 mmol/L Potassium Level 3.8 3.5-5.1 mmol/L Chloride Level 108 101-111 mmol/L Carbon Dioxide Level 29 21-32 mmol/L Blood Urea Nitrogen 12 7-18 mg/dL Creatinine 0.5 0.5-1.0 mg/dL Glomerular Filtration Rate Calc 92 >90 mL/min Random Glucose 64 L 70-105 mg/dL Total Calcium 8.6 8.5-10.1 mg/dL Magnesium Level 2.70 H 1.80-2.40 mg/dL Total Bilirubin 0.8 0.2-1.0 mg/dL Aspartate Amino Transf (AST/SGOT) 23 10-37 U/L Alanine Aminotransferase (ALT/SGPT) 16 12-78 U/L Alkaline Phosphatase 76 50-136 U/L Total Protein 6.6 6.0-8.3 g/dL Albumin 3.2 L 3.5-5.0 g/dL White Cell Morphology Comment See comments Red Blood Cell Morphology ANISO 1+ Test 09/01/24 11:21 Range/Units Urine Color YELLOW YELLOW Urine Appearance CLEAR CLEAR Urine pH 5.5 5.0-8.0 Urine Specific [place] 1.016 1.001-1.031 Urine Protein 30 H NEGATIVE mg/dL Urine Glucose (UA) NEGATIVE NEGATIVE mg/dL Urine Ketones 10 H NEGATIVE mg/dL Urine Occult Blood NEGATIVE NEGATIVE Urine Nitrate NEGATIVE NEGATIVE Urine Bilirubin NEGATIVE NEGATIVE mg/dL Urine Urobilinogen 0.2 0.2-1.0 mg/dL Urine Leukocyte Esterase NEGATIVE NEGATIVE Ankur/uL Urine RBC 0-1 0-1 /HPF Urine WBC 0-1 0-1 /HPF Urine Squamous Epithelial Cells RARE 0-2 /HPF Urine Bacteria None None Seen /HPF Urine Hyaline Casts 2-5 H 0-1 /LPF /LPF Current Medications Medications (Trade) Dose Ordered Sig/Emily Route PRN Reason Start Time Stop Time Status Last Admin Dose Admin Acetaminophen (TYLenol 325MG TAB) 650 mg Q4H PRN PO TEMPERATURE GREATER THAN 101.5 09/01/24 13:30 10/01/24 13:29 Dextrose (D50w) 50 ml AD PRN IV HYPOGLYCEMIA PROTOCOL 09/02/24 06:00 10/02/24 05:59 09/02/24 05:42 50 ML Glucagon (Glucagon 1mg Kit) 1 mg AD PRN IM HYPOGLYCEMIA PROTOCOL 09/02/24 06:00 10/02/24 05:59 Hydralazine HCl (APRESOLine 20MG INJ) 5 mg Q4H PRN IV ADMINISTER FOR SBP > 160 09/01/24 13:30 10/01/24 13:29 Insulin Human Regular (humuLIN R 100 UNIT/ML 3ML) INSULIN SLIDING SCAL... ACHS SQ 09/01/24 16:30 10/01/24 16:29 Ketorolac Tromethamine (toRADol) 15 mg Q6H PRN IV MODERATE PAIN (4-6) 09/01/24 13:30 09/06/24 13:29 Magnesium Sulfate 50 ml @ 0 mls/hr PROTOCOL PRN IV low mag level 09/01/24 13:30 10/01/24 13:29 Multivitamins/ Minerals 10 ml/ Folic Acid 1 mg/ Thiamine HCl 100 mg/Sodium Chloride 1,010 ml @ 50 mls/hr DAILY IV 09/02/24 09:00 09/05/24 05:11 09/02/24 12:49 50 MLS/HR Pantoprazole Sodium (PROTonix 40MG INJ) 40 mg DAILY IVP 09/02/24 09:00 10/02/24 08:59 09/02/24 12:48 40 MG Pharmacy Profile Note (Pharmacy Communication) 1 each AD MISC 09/02/24 10:00 09/02/24 09:44 DC Polyethylene Glycol/ Electrolytes (Golytely/Colyte Soln) 4,000 ml ONCE STAT PO 09/02/24 08:29 09/02/24 08:45 DC Potassium Chloride 100 ml @ 50 mls/hr AD PRN IV POTASSIUM PROTOCOL 09/01/24 13:30 10/01/24 13:29 09/02/24 04:27 50 MLS/HR Sodium Chloride 1,000 ml @ 75 mls/hr [id number] IV 09/01/24 13:30 09/01/24 14:57 DC 09/01/24 13:34 75 MLS/HR Thiamine HCl (Vitamin B-1) 100 mg DAILY IVP 09/02/24 09:00 10/02/24 08:59 09/02/24 12:48 100 MG Diagnostics / Radiology: [COPY/PASTE HERE IF NO REPORTS PLEASE DELETE SECTION] Assessment: Constipation vs distal bowel obstruction Plan: Start golytely until bowel movement achieved along with enemas every 3-4 hours AMANDA PIKE SALES REPRESENTATIVE Sep 02, 2024 22:01
--- NOTE | 2024-09-03 00:20 | NUR ---
ENEMA: SMALL AMOUNT OF BROWN STOOL NOTED IN DIAPER. RECTAL EXAMINATION DONE AND HARD STOOL FELT. FLEETS ENEMA GIVEN AT THIS TIME. PT TOLERATED WELL.
[2024-09-03 04:00] VITALS: BP 129/51; PULSE 66; RESP 17; TEMP 98
--- NOTE | 2024-09-03 04:40 | NUR ---
ENEMA: TAP WATER ENEMA GIVEN. LARGE AMOUNT OF BROWN BOWEL MOVEMENT NOTED UPON TURNING HER TO HER SIDE. PT TOLERATED ENEMA.
[2024-09-03 05:52] LABS: BASOPHILS # (AUTO) 0.03 K/uL (0.00-0.20); BASOPHILS % (AUTO) 0.6 % (0.0-5.0); EOSINOPHILS # (AUTO) 0.04 K/uL (0.00-0.70); EOSINOPHILS % (AUTO) 0.8 % (0.0-8.0); HEMATOCRIT 30.4 % (36-48); IMMATURE GRANULOCYTE ABSOLUTE 0.03 K/uL (0-1); LYMPHOCYTES # (AUTO) 0.6 K/uL (1.0-4.8); LYMPHOCYTES % (AUTO) 11.9 % (21.0-51.0); MEAN CORPUSCULAR HEMOGLOBIN 30.7 pg (27.0-33.0); MEAN CORPUSCULAR HGB CONC 33.9 g/dL (32.0-36.0); MEAN CORPUSCULAR VOLUME 90.7 fL (79-99); MONOCYTES # (AUTO) 0.3 K/uL (0.1-1.0); MONOCYTES % (AUTO) 5.1 % (3.0-13.0); NEUTROPHILS # (AUTO) 4.3 K/uL (1.8-7.7); PLATELET COUNT (AUTO) 209 K/uL (130-400); RED BLOOD CELL COUNT(AUTO) 3.35 MIL/uL (4.00-5.50); RED CELL DISTRIBUTION WIDTH 14.9 % (11.0-15.5); WHITE BLOOD COUNT (AUTO) 5.3 K/uL (4.8-10.8)
[2024-09-03 06:10] LABS: ALBUMIN 2.7 g/dL (3.5-5.0); BILIRUBIN,TOTAL 0.7 mg/dL (0.2-1.0); CREATININE 0.4 mg/dL (0.5-1.0); MAGNESIUM 2.1 mg/dL (1.80-2.40); POTASSIUM 3.4 mmol/L (3.5-5.1); TOTAL PROTEIN, SERUM 5.5 g/dL (6.0-8.3)
[2024-09-03 07:36] VITALS: BP 130/55; PULSE 61; RESP 16; TEMP 97.5
[2024-09-03] MEDS ORDERED: PoTASSium chl 10% ELIXIR 20MEQ 20 MEQ/15 ML UDCUP PO PRN (10:00)
[2024-09-03] MEDS: PoTASSium chloRIDE 20MEQ/100ML 100 ML IV ONE (10:00)
[2024-09-03] MEDS ORDERED: PoTASSium chloRIDE 20MEQ ER 20 MEQ ERTAB PO PRN (10:00)
[2024-09-03 11:00] VITALS: O2SAT 98
[2024-09-03 11:56] VITALS: BP 141/82; PULSE 68; RESP 16; TEMP 97.7
--- NOTE | 2024-09-03 12:02 | PN ---
[facility] PROGRESS NOTE Date of Service: Sep 03, 2024 Time of Service: 11:57 SUBJECTIVE: [ ] Admission date 09 01 2024 PCP; Dr Da Reilly MD This is a 84-year-old female was brought in by family members presented with abdominal pain distention. Family reports patient has not been having bowel movements for the past two days. She started with nausea and vomiting with abdominal distention. Patient appears emaciated, fragile and debilitated. ER workup imaging abdomen and pelvis Extensive colonic distention is seen may be related to distal colon obstruction versus constipation. Bladder scan was done urinary retention Corrales catheter was placed. Dr. Molina discussed DNR status with family they we will proceed with DNR DNI on this admission. GI has been consulted we will follow the recommendations. 09/02/2024 PATIENT IS SEEN AND EXAMINED WITH DR. MOLINA. PATIENT'S APPEARS TO BE COMFORTABLE AT THIS TIME. CONTINUES WITH BANANA BAG WITH MULTIVITAMIN. GI IS RECOMMENDING surgeon to evaluate patient Dr. Garcia surgeon order GoLYTELY however patient unable to drink to fragile NG tube was discussed with daughter at bedside she refused. Radha CONN primary nurse we will reach out to surgeon. 09/03/24 patient is seen and examined with Dr. Molina. reviewed chart. Primary nurse reports patient had two large BMs overnight. We will repeat KUB today. Patient apparently is pocketing food discussed gastrostomy tube we will wait for GI to see if patient is a candidate for PEG tube. I also discussed hospice palliative patient has been on hospice before with [facility]. At this time they want to discuss patient's condition to the hold family members in here white GI is recommending. Otherwise patient is lying in bed comfortably appears fragile and weak. REVIEW OF SYSTEMS CONSTITUTIONAL: Denies fevers, chills, or night sweats. No unintentional weight loss reported. NEUROLOGICAL: Denies headache, amaurosis fugax, motor weakness, sensory def icit, vertigo/spinning sensation, gait abnormalities, or tremors. ENT: No hearing loss, otalgia, otorrhea, rhinitis, rhinorrhea, hoarseness, or sore throat. CARDIOVASCULAR: Denies any exertional angina, dyspnea on exertion, orthopnea, paroxysmal nocturnal dyspnea, palpitations, life-threatening arrhythmias, claudication. PULMONARY: Denies any shortness of breath, cough, phlegm/sputum, hemoptysis, pleuritic chest pain. SLEEP: Denies morning headaches, daytime somnolence or napping. Denies difficulty falling asleep, staying asleep, waking from sleep. Denies knowledge of snoring. GASTROINTESTINAL: Denies any type of dysphagia to either liquids or solids. Denies nausea, vomiting, pyrosis, early satiety, abdominal pain, diarrhea, constipation, or changes in stool consistency or caliber. Denies coffee-ground emesis, hematemesis, hematochezia, or melanotic stools. GENITOURINARY: Denies frequency, urgency, nocturia, hematuria or incontinence (Storage/Irritative symptoms.) Low urinary stream, straining to void, urinary intermittency or hesitancy, splitting of the voiding stream, terminal dribbling. ENDOCRINOLOGIC: Denies polyuria, polydipsia, polyphagia or heat/cold intolerances. HEMATOLOGIC: Denies thrombophilia/previous clots, or coagulopathy/bleeding disorders. ONCOLOGIC: Denies personal history of malignancy. DERMATOLOGIC: Denies rashes or pruritus. PSYCHIATRIC: Denies any suicidal or homicidal ideation. Denies hallucinations. PHYSICAL EXAM GENERAL APPEARANCE: chronically ill, emaciated cachexia NEUROLOGICAL: Cranial nerves II-XII grossly intact. Motor is 5/5 in bilateral upper and lower extremities proximal to distal. No sensory deficits. HEENT: Face is symmetric. Pupils are equal and reactive. Extraocular movements are intact. NECK: Supple. No JVD. No thyromegaly. No submental, submandibular, pre-/postau ricular, occipital or supraclavicular lymphadenopathy. CHEST: Normal chest expansion. No Telemetry. LUNGS: Absence of any rales, rhonchi or any wheezing. CARDIOVASCULAR: Regular. S1 and S2 normal. No appreciable rubs, murmurs or gallops. ABDOMEN: Soft, nontender, and nondistended. There is no rebound, voluntary guarding, or rigidity. : Deferred. Corrales cath with yellow urine EXTREMITIES: Non-edematous and not cyanotic. No clubbing. Good capillary refill. SKIN: No skin breakdown. skin tear to bilateral arm. ecchymosis Vital Signs (last 8hr) Date Time Temp Pulse Resp B/P (MAP) Pulse Ox O2 Delivery O2 Flow Rate FiO2 09/03/24 07:36 97.5 61 16 130/55 98 Room Air 21 09/03/24 04:00 98.1 66 17 129/51 97 Room Air 21 LABS: Laboratory: Test 09/03/24 06:25 09/03/24 05:43 09/02/24 06:34 Range/Units Whole Blood Glucose 124 #H 70-110 MG/DL White Blood Count 5.3 4.8-10.8 K/uL Red Blood Count 3.35 L 4.00-5.50 MIL/uL Hemoglobin 10.3 L 12.0-16.0 g/dL Hematocrit 30.4 L 36-48 % Mean Corpuscular Volume 90.7 79-99 fL Mean Corpuscular Hemoglobin 30.7 27.0-33.0 pg Mean Corpuscular Hemoglobin Concent 33.9 32.0-36.0 g/dL Red Cell Distribution Width 14.9 11.0-15.5 % Platelet Count 209 130-400 K/uL Mean Platelet Volume 10.0 7.5-10.5 fL Immature Granulocyte % (Auto) 0.6 0-1 % Neutrophils (%) (Auto) 81.0 H 40.0-77.0 % Lymphocytes (%) (Auto) 11.9 L 21.0-51.0 % Monocytes (%) (Auto) 5.1 3.0-13.0 % Eosinophils (%) (Auto) 0.8 0.0-8.0 % Basophils (%) (Auto) 0.6 0.0-5.0 % Neutrophils # (Auto) 4.3 1.8-7.7 K/uL Lymphocytes # (Auto) 0.6 L 1.0-4.8 K/uL Monocytes # (Auto) 0.3 0.1-1.0 K/uL Eosinophils # (Auto) 0.04 0.00-0.70 K/uL Basophils # (Auto) 0.03 0.00-0.20 K/uL Absolute Immature Granulocyte (auto 0.03 0-1 K/uL Nucleated Red Blood Cells 0.0 0.0-0.19 % Sodium Level 143 136-145 mmol/L Potassium Level 3.4 L 3.5-5.1 mmol/L Chloride Level 108 101-111 mmol/L Carbon Dioxide Level 31 21-32 mmol/L Blood Urea Nitrogen 7 7-18 mg/dL Creatinine 0.4 L 0.5-1.0 mg/dL Glomerular Filtration Rate Calc 97 >90 mL/min Random Glucose 158 H 70-105 mg/dL Total Calcium 8.1 L 8.5-10.1 mg/dL Magnesium Level 2.10 1.80-2.40 mg/dL Total Bilirubin 0.7 0.2-1.0 mg/dL Aspartate Amino Transf (AST/SGOT) 23 10-37 U/L Alanine Aminotransferase (ALT/SGPT) 13 12-78 U/L Alkaline Phosphatase 63 50-136 U/L Total Protein 5.5 L 6.0-8.3 g/dL Albumin 2.7 L 3.5-5.0 g/dL Bedside Glucose Comment Notified Nurse Current Medications Medications (Trade) Dose Ordered Sig/Emily Route PRN Reason Start Time Stop Time Status Last Admin Dose Admin Acetaminophen (TYLenol 325MG TAB) 650 mg Q4H PRN PO TEMPERATURE GREATER THAN 101.5 09/01/24 13:30 10/01/24 13:29 Dextrose (D50w) 50 ml AD PRN IV HYPOGLYCEMIA PROTOCOL 09/02/24 06:00 10/02/24 05:59 09/03/24 05:10 50 ML Glucagon (Glucagon 1mg Kit) 1 mg AD PRN IM HYPOGLYCEMIA PROTOCOL 09/02/24 06:00 10/02/24 05:59 Hydralazine HCl (APRESOLine 20MG INJ) 5 mg Q4H PRN IV ADMINISTER FOR SBP > 160 09/01/24 13:30 10/01/24 13:29 Insulin Human Regular (humuLIN R 100 UNIT/ML 3ML) INSULIN SLIDING SCAL... ACHS SQ 09/01/24 16:30 10/01/24 16:29 Ketorolac Tromethamine (toRADol) 15 mg Q6H PRN IV MODERATE PAIN (4-6) 09/01/24 13:30 09/06/24 13:29 Magnesium Sulfate 50 ml @ 0 mls/hr PROTOCOL PRN IV low mag level 09/01/24 13:30 10/01/24 13:29 Multivitamins/ Minerals 10 ml/ Folic Acid 1 mg/ Thiamine HCl 100 mg/Sodium Chloride 1,010 ml @ 50 mls/hr DAILY IV 09/02/24 09:00 09/05/24 05:11 09/03/24 09:52 50 MLS/HR Pantoprazole Sodium (PROTonix 40MG INJ) 40 mg DAILY IVP 09/02/24 09:00 10/02/24 08:59 09/03/24 08:48 40 MG Pharmacy Profile Note (Pharmacy Communication) 1 each AD MISC 09/02/24 10:00 09/02/24 09:44 DC Polyethylene Glycol/ Electrolytes (Golytely/Colyte Soln) 4,000 ml ONCE STAT PO 09/02/24 08:29 09/02/24 08:45 DC Potassium Chloride 100 ml @ 50 mls/hr AD PRN IV POTASSIUM PROTOCOL 09/01/24 13:30 09/03/24 10:04 DC 09/02/24 04:27 50 MLS/HR Potassium Chloride 100 ml @ 100 mls/hr AD PRN IV POTASSIUM PROTOCOL 09/03/24 10:00 10/03/24 09:59 Potassium Chloride (K-Dur/Klor-Con 20meq) 20 meq AD PRN PO POTASSIUM PROTOCOL 09/03/24 10:00 10/03/24 09:59 Potassium Chloride (KCl 10% Elixir 20meq/15ml) 20 meq AD PRN PO POTASSIUM PROTOCOL 09/03/24 10:00 10/03/24 09:59 Sodium Chloride 1,000 ml @ 75 mls/hr [id number] IV 09/01/24 13:30 09/01/24 14:57 DC 09/01/24 13:34 75 MLS/HR Thiamine HCl (Vitamin B-1) 100 mg DAILY IVP 09/02/24 09:00 10/02/24 08:59 09/03/24 08:49 100 MG DIAGNOSTICS / RADIOLOGY: [ ] ASSESSMENT: distal colon obstruction versus constipation. 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 POA Nausea and vomiting POA Electrolytes derangement Hyponatremia hypokalemia hypernatremia POA Dehydration POA Debility, frailty, deconditioning, POA severe protein calorie malnutrition POA DNR/DNI POA History of hypertension, POA History of hyperlipidemia, POA History of type 2 diabetes mellitus, POA History of hypothyroidism, POA History of peripheral vascular disease, POA PLAN: admit to med surgical floor big machine consultant; Dr Ish Sharp (GI). DR Hill Repeat KUB patient had two large BMs overnight. Patient is on her last banana bag with multivitamins at 50 mL/hour. Strict NPO speech patient is following patient is pocketing food high-risk for aspiration. Thiamine 100 mg for five days Dietitian follow recommendations Speech consulted aspiration precautions head of the bed at 45 at all times Replace electrolytes to keep potassium above 4.0 and magnesium above 2.0. ac/hs monitoring with SSRI 1/2 scale Labs in a.m. CBC CMP magnesium fall precaution, call light in reach decubitus precaution: reposition every 4 hrs aggressive off loading. PRN: MEDICATIONS Tylenol 650 mg po every 4 hrs for fever Zofran 4 mg IV every 6 hrs for n/v Hydralazine 5mg IV every 4 hrs systolic pressure > 160 Pain management: Supportive measures: DVT ppx, with SCD GI ppx PPIs Protonix RN pending to reviewed home medications all questions answered DNR /DNI: status Supervising MD: Dr. Molina c/d ATTESTATION BY PHYSICIAN I have seen and examined the patient. I reviewed the documentation, medical decision making, and treatment plan as noted by the mid-level provider above. I agree with the findings and plan of care. DELMY MOLINA MD, ELIZABETH NP Sep 03, 2024 12:02
--- NOTE | 2024-09-03 13:29 | HMCIMG ---
ABD 1VW HISTORY: Constipation COMPARISON: September 02, 2024 FINDINGS: A frontal projection of the abdomen was obtained. Mild small bowel dilatation is seen. Fecal material is seen in the colon. Degenerative changes of the thoracolumbar spine are noted. IMPRESSION: 1. Mild small bowel dilatation.
--- NOTE | 2024-09-03 15:45 | NUR ---
SPEECH THERAPY COMPLETED TECHNICAL MARKETING ENGINEER arrived to patient's room for therapy. Pt in bed with head of bed reclined. Family present at time of visit. As per family, patient holds food in oral cavity and does not trigger the swallow. Her oral intake has decreased. TECHNICAL MARKETING ENGINEER educated family that patients with dementia at times hold their food and even stop eating. There is a high risk for aspiration if patient is not accepting food and food is introduced. Pt does not have awareness of food being placed in oral cavity and may choke with food during inhalation. Feed only when patient is awake and accepting food. Remove any food from oral cavity after meals. Pt not following commands for therapy at this time. Pt will be discharged from speech therapy services. Continue with pureed solids and honey thick liquids as tolerated. All questions answered. Addendum: 09/03/[address] RUBEN URBANO Amended: Links added.
[2024-09-03 16:00] VITALS: BP 143/62; PULSE 70; RESP 16; TEMP 97.6
[2024-09-03 20:00] VITALS: BP 139/48; PULSE 73; RESP 17; TEMP 97.7; O2SAT 96
--- NOTE | 2024-09-03 22:19 | PN ---
GASTROENTEROLOGY PROGRESS NOTE Date of Visit: Sep 03, 2024 Time of Visit: 22:19 Events / Notes: No acute events overnight. She passed successful BM. She passed speech eval. Review of Systems: CONSTITUTIONAL: No malaise or change in sensation of wellbeing. ENMT: No rhinorrhea, otorrhea, sinus pain, ear ache. CARDIOVASCULAR: No angina, palpitations, orthopnea or paroxysmal dyspnea. RESPIRATORY: No SOB. GASTROINTESTINAL: No abdominal pain, nausea, vomiting, diarrhea, hematemesis, melena or change in the patient's habitual bowel movements consistency/number. GENITOURINARY: No dysuria, hematuria or change in bladder continence. MUSCULOSKELETAL: No new muscle pain or decrease in muscular strength. No new joint swelling, redness or tenderness. SKIN: No new rash. Physical Exam: GEN: Awake, alert, oriented in person, time and place, and in no acute distress. HEENT: No sinus tenderness. Tympanic membranes were not examined. No rhinorrhea. Oral pharyngeal mucosa is pink, moist and within normal limits. Neck is supple with no cervical lymphadenopathy, thyromegaly or JVD. CHEST: Inspection, palpation and percussion of the chest were unremarkable. Lung auscultation revealed normal breath sounds bilaterally. CARDIAC: PMI is within normal limits. Heart sounds are regular. Normal S1, S2. No gallop or murmur. ABD: Soft, non-tender and not distended. No peritoneal signs on palpation. No organomegaly. Normal bowel sounds. EXT: No cyanosis or clubbing. No edema. SKIN: Intact. No rashes. JOINTS: No evidence of synovitis or acute arthritis. NEURO: Alert and oriented to name, place and person. Cranial nerve examination is unremarkable. No focal motor deficits. Normal speech. Gait is normal. Strength is normal. Vital Signs (last 8hr) Date Time Temp Pulse Resp B/P (MAP) Pulse Ox O2 Delivery O2 Flow Rate FiO2 09/03/24 20:00 97.7 73 17 139/48 96 Room Air 09/03/24 16:00 97.5 70 16 143/62 96 Room Air 21 Laboratory: [ ] Laboratory: Test 09/03/24 19:43 09/03/24 05:43 09/02/24 06:34 Range/Units Whole Blood Glucose 79 70-110 MG/DL White Blood Count 5.3 4.8-10.8 K/uL Red Blood Count 3.35 L 4.00-5.50 MIL/uL Hemoglobin 10.3 L 12.0-16.0 g/dL Hematocrit 30.4 L 36-48 % Mean Corpuscular Volume 90.7 79-99 fL Mean Corpuscular Hemoglobin 30.7 27.0-33.0 pg Mean Corpuscular Hemoglobin Concent 33.9 32.0-36.0 g/dL Red Cell Distribution Width 14.9 11.0-15.5 % Platelet Count 209 130-400 K/uL Mean Platelet Volume 10.0 7.5-10.5 fL Immature Granulocyte % (Auto) 0.6 0-1 % Neutrophils (%) (Auto) 81.0 H 40.0-77.0 % Lymphocytes (%) (Auto) 11.9 L 21.0-51.0 % Monocytes (%) (Auto) 5.1 3.0-13.0 % Eosinophils (%) (Auto) 0.8 0.0-8.0 % Basophils (%) (Auto) 0.6 0.0-5.0 % Neutrophils # (Auto) 4.3 1.8-7.7 K/uL Lymphocytes # (Auto) 0.6 L 1.0-4.8 K/uL Monocytes # (Auto) 0.3 0.1-1.0 K/uL Eosinophils # (Auto) 0.04 0.00-0.70 K/uL Basophils # (Auto) 0.03 0.00-0.20 K/uL Absolute Immature Granulocyte (auto 0.03 0-1 K/uL Nucleated Red Blood Cells 0.0 0.0-0.19 % Sodium Level 143 136-145 mmol/L Potassium Level 3.4 L 3.5-5.1 mmol/L Chloride Level 108 101-111 mmol/L Carbon Dioxide Level 31 21-32 mmol/L Blood Urea Nitrogen 7 7-18 mg/dL Creatinine 0.4 L 0.5-1.0 mg/dL Glomerular Filtration Rate Calc 97 >90 mL/min Random Glucose 158 H 70-105 mg/dL Total Calcium 8.1 L 8.5-10.1 mg/dL Magnesium Level 2.10 1.80-2.40 mg/dL Total Bilirubin 0.7 0.2-1.0 mg/dL Aspartate Amino Transf (AST/SGOT) 23 10-37 U/L Alanine Aminotransferase (ALT/SGPT) 13 12-78 U/L Alkaline Phosphatase 63 50-136 U/L Total Protein 5.5 L 6.0-8.3 g/dL Albumin 2.7 L 3.5-5.0 g/dL Bedside Glucose Comment Notified Nurse Current Medications Medications (Trade) Dose Ordered Sig/Emily Route PRN Reason Start Time Stop Time Status Last Admin Dose Admin Acetaminophen (TYLenol 325MG TAB) 650 mg Q4H PRN PO TEMPERATURE GREATER THAN 101.5 09/01/24 13:30 10/01/24 13:29 Dextrose (D50w) 50 ml AD PRN IV HYPOGLYCEMIA PROTOCOL 09/02/24 06:00 10/02/24 05:59 09/03/24 05:10 50 ML Glucagon (Glucagon 1mg Kit) 1 mg AD PRN IM HYPOGLYCEMIA PROTOCOL 09/02/24 06:00 10/02/24 05:59 Hydralazine HCl (APRESOLine 20MG INJ) 5 mg Q4H PRN IV ADMINISTER FOR SBP > 160 09/01/24 13:30 10/01/24 13:29 Insulin Human Regular (humuLIN R 100 UNIT/ML 3ML) INSULIN SLIDING SCAL... ACHS SQ 09/01/24 16:30 10/01/24 16:29 Ketorolac Tromethamine (toRADol) 15 mg Q6H PRN IV MODERATE PAIN (4-6) 09/01/24 13:30 09/06/24 13:29 Magnesium Sulfate 50 ml @ 0 mls/hr PROTOCOL PRN IV low mag level 09/01/24 13:30 10/01/24 13:29 Multivitamins/ Minerals 10 ml/ Folic Acid 1 mg/ Thiamine HCl 100 mg/Sodium Chloride 1,010 ml @ 50 mls/hr DAILY IV 09/02/24 09:00 09/03/24 19:16 DC 09/03/24 09:52 50 MLS/HR Pantoprazole Sodium (PROTonix 40MG INJ) 40 mg DAILY IVP 09/02/24 09:00 10/02/24 08:59 09/03/24 08:48 40 MG Pharmacy Profile Note (Pharmacy Communication) 1 each AD MISC 09/02/24 10:00 09/02/24 09:44 DC Polyethylene Glycol/ Electrolytes (Golytely/Colyte Soln) 4,000 ml ONCE STAT PO 09/02/24 08:29 09/02/24 08:45 DC Potassium Chloride 100 ml @ 50 mls/hr AD PRN IV POTASSIUM PROTOCOL 09/01/24 13:30 09/03/24 10:04 DC 09/02/24 04:27 50 MLS/HR Potassium Chloride 100 ml @ 100 mls/hr AD PRN IV POTASSIUM PROTOCOL 09/03/24 10:00 10/03/24 09:59 Potassium Chloride (K-Dur/Klor-Con 20meq) 20 meq AD PRN PO POTASSIUM PROTOCOL 09/03/24 10:00 10/03/24 09:59 Potassium Chloride (KCl 10% Elixir 20meq/15ml) 20 meq AD PRN PO POTASSIUM PROTOCOL 09/03/24 10:00 10/03/24 09:59 Sodium Chloride 1,000 ml @ 75 mls/hr [id number] IV 09/01/24 13:30 09/01/24 14:57 DC 09/01/24 13:34 75 MLS/HR Thiamine HCl (Vitamin B-1) 100 mg DAILY IVP 09/02/24 09:00 10/02/24 08:59 09/03/24 08:49 100 MG Diagnostics / Radiology: [COPY/PASTE HERE IF NO REPORTS PLEASE DELETE SECTION] Assessment: Constipation vs distal bowel obstruction Plan: continue daily bowel regimen like miralax Continue oral diet modifications as tolerated Notify us if family would like peg for supplemental nutrition AMANDA PIKE PIGGERY WORKER Sep 03, 2024 22:19
[2024-09-04] VITALS: BP 163/51; PULSE 48; RESP 16; TEMP 98.2
[2024-09-04] MEDS: hydrALAZine 20MG/ML VIAL IV PRN (00:04)
[2024-09-04 04:00] VITALS: BP 121/61; PULSE 62; RESP 18; TEMP 98.6
--- NOTE | 2024-09-04 05:34 | NUR ---
LOW BS: PT WITH BLOOD SUGAR-66. PT IS NPO DUE TO POCKETING AND NOT EATING, HIGH RISK OF ASPIRATION. 1/2 AMP OF D50 IV GIVEN.
[2024-09-04 06:01] LABS: BASOPHILS # (AUTO) 0.04 K/uL (0.00-0.20); BASOPHILS % (AUTO) 0.8 % (0.0-5.0); EOSINOPHILS # (AUTO) 0.05 K/uL (0.00-0.70); IMMATURE GRANULOCYTE ABSOLUTE 0.01 K/uL (0-1); LYMPHOCYTES % (AUTO) 21.8 % (21.0-51.0); MEAN CORPUSCULAR HEMOGLOBIN 30.8 pg (27.0-33.0); MEAN CORPUSCULAR HGB CONC 34.1 g/dL (32.0-36.0); MEAN CORPUSCULAR VOLUME 90.5 fL (79-99); MONOCYTES # (AUTO) 0.2 K/uL (0.1-1.0); MONOCYTES % (AUTO) 4.8 % (3.0-13.0); NEUTROPHILS # (AUTO) 3.4 K/uL (1.8-7.7); NEUTROPHILS % (AUTO) 71.4 % (40.0-77.0); PLATELET COUNT (AUTO) 230 K/uL (130-400); RED BLOOD CELL COUNT(AUTO) 4.09 MIL/uL (4.00-5.50); RED CELL DISTRIBUTION WIDTH 14.7 % (11.0-15.5); WHITE BLOOD COUNT (AUTO) 4.8 K/uL (4.8-10.8)
[2024-09-04 06:21] LABS: ALBUMIN 2.8 g/dL (3.5-5.0); BILIRUBIN,TOTAL 0.7 mg/dL (0.2-1.0); CREATININE 0.4 mg/dL (0.5-1.0); MAGNESIUM 1.9 mg/dL (1.80-2.40); POTASSIUM 3.1 mmol/L (3.5-5.1)
[2024-09-04] MEDS: PoTASSium chloRIDE 20MEQ/100ML 100 ML IV PRN (06:33)
[2024-09-04 08:00] VITALS: BP 164/67; PULSE 75; RESP 16
[2024-09-04 08:10] VITALS: O2SAT 99
--- NOTE | 2024-09-04 11:18 | NUR ---
[facility] Consult: Patient assessed by wound healing team. See wound assessment. Assessment and recommendations provided to primary nurse. Education provided. Wound care done. Addendum: 09/04/24 at 1217 by DANIELA VALDIVIA RN RN/ Amended: Links added.
[2024-09-04 12:00] VITALS: BP 153/67; PULSE 72; RESP 16; TEMP 98.1
--- NOTE | 2024-09-04 12:41 | NUR ---
DCP: HOME WITH [facility] [phone] Sw spoke to family who wants to restart services with [facility]. DCP is to take pt home with hospice. Daughter signed consent. Referral made to [facility] [phone] and faxed clinicals to office [phone]. [facility] to bring OOHDNR for chart and transfer home. YVETTE Tyson made aware of need for ambulance. DC pending DME delivery
--- NOTE | 2024-09-04 13:19 | NUR ---
CM NOTE: EMS ARRANGED CM RECEIVED REQUEST FOR EMS ARRANGEMENT FROM [facility] W/[facility]. CM ARRANGED AND FAXED EMS FOR TODAY. PRIMARY NURSE TO CALL [facility] ONCE PT READY TO DC AND CLEARED. PRIMARY NURSE EAMON MADE AWARE. CM TO CONTINUE TO FOLLOW UP. Addendum: 09/04/24 at 1321 by LEBRON CATES LVN Amended: Links added.
[2024-09-04] MEDS ORDERED: THIA100T91 PO (13:59)
--- NOTE | 2024-09-04 15:15 | DS ---
Discharge Summary Hospital Course Summary: This is a 84-year-old female was brought in by family members presented with abdominal pain distention. Family reports patient has not been having bowel movements for the past two days. She started with nausea and vomiting with abdominal distention. Patient appears emaciated, fragile and debilitated. ER workup imaging abdomen and pelvis Extensive colonic distention is seen may be related to distal colon obstruction versus constipation. Bladder scan was done urinary retention Corrales catheter was placed. Dr. Molina discussed DNR status with family they we will proceed with DNR DNI on this admission. GI has been consulted we will follow the recommendations. 09/02/2024 PATIENT IS SEEN AND EXAMINED WITH DR. MOLINA. PATIENT'S APPEARS TO BE COMFORTABLE AT THIS TIME. CONTINUES WITH BANANA BAG WITH MULTIVITAMIN. GI IS RECOMMENDING surgeon to evaluate patient Dr. Garcia surgeon order GoLYTELY however patient unable to drink to fragile NG tube was discussed with daughter at bedside she refused. Radha CONN primary nurse we will reach out to surgeon. 09/03/2024: No acute events overnight. She passed successful BM. She passed sp eech eval. 09/04/2024: Patient accepted into [facility] at home. Comfort measures only. Certified Nursing Assistant Instructor(s): Gastroenterology, General Surgery, replenishment specialist. Procedure(s): PATIENT: LAURIE POSADA MR#: [id number] : 1940 SEX: F AGE: 84 LOCATION: [facility] ORDER 1158 STATUS: ADM IN REPORT#: [id number] SERVICE 1158 REASON: constipation ORDERING PHYSICIAN: RADHA HANSON NP PROCEDURE: ABD 1VW - ABD 1VW ABD 1VW HISTORY: Constipation COMPARISON: September 02, 2024 FINDINGS: A frontal projection of the abdomen was obtained. Mild small bowel dilatation is seen. Fecal material is seen in the colon. Degenerative changes of the thoracolumbar spine are noted. IMPRESSION: 1. Mild small bowel dilatation. DICTATED BY: SUNDAR BOOTHE MD DATE: 09/03/24 1326 ELECTRONICALLY SIGNED BY: SUNDAR BOOTHE MD DATE: 09/03/24 132 PATIENT: LAURIE POSADA MR#: [id number] : 1940 SEX: F AGE: 84 LOCATION: [facility] ORDER 2300 STATUS: ADM IN REPORT#: [id number] SERVICE 0600 REASON: CONSTIPATION, BOWEL OBSTRUCTION? ORDERING PHYSICIAN: AMANDA PIKE LIGHT CLEANER PROCEDURE: ABD 1VW - ABD 1VW ABD 1VW HISTORY: Constipation COMPARISON: None FINDINGS: A frontal projection of the abdomen was obtained. There is colonic distention. Fecal material is seen in the colon. Degenerative changes of the thoracolumbar spine are noted. IMPRESSION: 1. Colonic distention. Large amount of fecal material is seen in the colon suggestive of constipation. DICTATED BY: SUNDAR BOOTHE MD DATE: 09/02/24 0054 ELECTRONICALLY SIGNED BY: SUNDAR BOOTHE MD DATE: 09/02/24 010 PATIENT: LAURIE POSADA MR#: [id number] : 1940 SEX: F AGE: 84 LOCATION: [facility] ORDER 1137 STATUS: REG ER REPORT#: [id number] SERVICE 1136 REASON: ABD PAIN ORDERING PHYSICIAN: NOBLE GENTILE MD PROCEDURE: ABD PEL WO - CT ABDOMEN/PELVIS W/O CONTRAST CT ABDOMEN/PELVIS W/O CONTRAST HISTORY: Abdominal pain COMPARISON: None TECHNIQUE: Multiple sequential axial images of the abdomen and pelvis were obtained from the dome of the diaphragm through symphysis pubis. Patient was not given contrast through intravenous route. Oral contrast was not given. FINDINGS: There are bilateral pleural effusions with compressive atelectasis. COPD changes are seen. There is no evidence of parenchymal disease or pulmonary nodule of the visualized lower lungs. Degenerative changes of the thoracolumbar spine are present. The heart is not enlarged. The liver, spleen, adrenal glands and pancreas are unremarkable. There is no evidence of hydronephrosis bilaterally. No evidence of renal stone is seen. Extensive colonic distention is seen may be related to distal colon obstruction versus constipation. Fecal material is seen in the colon. There are normal size retroperitoneal and mesenteric lymph nodes. No ascites is seen. Atherosclerotic changes are present. There is anasarca. Appendix is not seen. There is diverticulosis. The study is limited due to cachexia. Pelvic sidewalls are symmetric bilaterally. Bladder is well distended without wall thickening. IMPRESSION: 1. Extensive colonic distention is seen may be related to distal colon obstruction versus constipation. Fecal material is seen in the colon. Bilateral pleural effusions. CT was performed with one or more following dose reduction techniques: automated exposure control, adjustment of the mA and kv according to patient's size, or use of a iterative reconstruction technique. DICTATED BY: SUNDAR BOOTHE MD DATE: 09/01/241223 ELECTRONICALLY SIGNED BY: SUNDAR BOOTHE MD DATE: 09/01/241226 Assessment/Plan: ASSESSMENT: distal colon obstruction versus constipation. 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 POA Nausea and vomiting POA Electrolytes derangement Hyponatremia hypokalemia hypernatremia POA Dehydration POA Debility, frailty, deconditioning, POA severe protein calorie malnutrition POA DNR/DNI POA History of hypertension, POA History of hyperlipidemia, POA History of type 2 diabetes mellitus, POA History of hypothyroidism, POA History of peripheral vascular disease, POA PLAN: admit to med surgical floor service delivery management consultant; Dr Ish Sharp (GI). DR Garcia Repeat KUB patient had two large BMs overnight. Patient is on her last banana bag with multivitamins at 50 mL/hour. Strict NPO speech patient is following patient is pocketing food high-risk for aspiration. Thiamine 100 mg for five days Dietitian follow recommendations Speech consulted aspiration precautions head of the bed at 45 at all times Replace electrolytes to keep potassium above 4.0 and magnesium above 2.0. ac/hs monitoring with SSRI 1/2 scale Labs in a.m. CBC CMP magnesium fall precaution, call light in reach decubitus precaution: reposition every 4 hrs aggressive off loading. PRN: MEDICATIONS Tylenol 650 mg po every 4 hrs for fever Zofran 4 mg IV every 6 hrs for n/v Hydralazine 5mg IV every 4 hrs systolic pressure > 160 Pain management: Supportive measures: DVT ppx, with SCD GI ppx PPIs Protonix RN pending to reviewed home medications all questions answered DNR /DNI: status Supervising MD: Dr. Molina c/d Discharge Instructions: Continue comfort care. Home Medications: Active Scripts Sodium Chloride (Sodium Chloride) 1,000 Mg Tab, 1000 MG PO DAILY for 5 Days, #5 TAB Prov:RADHA HANSON GAS STATION SUPERVISOR 04/11/22 Reported Medications Acetaminophen (Tylenol) 500 Mg Tab, 500 MG PO Q6HPRN, TAB 04/09/22 Metformin HCl (Metformin HCl) 1,000 Mg Tablet, 1000 MG PO BIDAC, TAB 04/09/22 Losartan Potassium (Losartan Potassium) 100 Mg Tablet, 100 MG PO DAILY, TAB 04/09/22 Levothyroxine Sodium (Levothyroxine) 75 Mcg Capsule, 75 MCG PO DAILY, CAP 04/09/22 Ferrous Sulfate (Iron) 325 Mg Tablet, 325 MG PO DAILY, TAB 04/09/22 Gabapentin (Gabapentin) 100 Mg Capsule, 100 MG PO HSPRN, CAP 04/09/22 Pravastatin Sodium (Pravastatin Sodium) 20 Mg Tablet, 20 MG PO DAILY, TAB 04/09/22 Cilostazol (Cilostazol) 50 Mg Tablet, 50 MG PO BIDAC, TAB 04/09/22 Memantine HCl (Memantine HCl) 5 Mg Tablet, 5 MG PO DAILY, TAB 04/09/22 Rivaroxaban (Xarelto) 2.5 Mg Tablet, 2.5 MG PO BID, TAB 04/09/22 Felodipine (Felodipine ER) 5 Mg Tab.er.24h, 5 MG PO HS, TAB 04/09/22 New Medications: PENDING: Thiamine HCl (Vitamin B-1) 100 Mg Tablet 1 TAB PO DAILY for 2 Days, #2 TAB 0 Refills Continued Medications: Acetaminophen (Tylenol) 500 Mg Tab 500 MG PO Q6HPRN, TAB Cilostazol (Cilostazol) 50 Mg Tablet 50 MG PO BIDAC, TAB Felodipine (Felodipine ER) 5 Mg Tab.er.24h 5 MG PO HS, TAB Ferrous Sulfate (Iron) 325 Mg Tablet 325 MG PO DAILY, TAB Gabapentin (Gabapentin) 100 Mg Capsule 100 MG PO HSPRN, CAP Levothyroxine Sodium (Levothyroxine) 75 Mcg Capsule 75 MCG PO DAILY, CAP Losartan Potassium (Losartan Potassium) 100 Mg Tablet 100 MG PO DAILY, TAB Memantine HCl (Memantine HCl) 5 Mg Tablet 5 MG PO DAILY, TAB Metformin HCl (Metformin HCl) 1,000 Mg Tablet 1000 MG PO BIDAC, TAB Pravastatin Sodium (Pravastatin Sodium) 20 Mg Tablet 20 MG PO DAILY, TAB Rivaroxaban (Xarelto) 2.5 Mg Tablet 2.5 MG PO BID, TAB Sodium Chloride (Sodium Chloride) 1,000 Mg Tab 1000 MG PO DAILY for 5 Days, #5 TAB Time spent arranging discharge: 1-30 minutes ATTESTATION BY PHYSICIAN I have seen and examined the patient. I reviewed the documentation, medical decision making, and treatment plan as noted by the resident provider above. I agree with the findings and plan of care. Jacoby Shane MD, NEHA MD Sep 04, 2024 15:15
[2024-09-04 16:00] VITALS: BP 152/58; PULSE 77; RESP 16; TEMP 97.7
--- NOTE | 2024-09-04 18:37 | PN ---
GASTROENTEROLOGY PROGRESS NOTE Date of Visit: Sep 04, 2024 Time of Visit: 18:37 Events / Notes: No acute events overnight. She passed successful BM. She passed speech eval. Review of Systems: CONSTITUTIONAL: No malaise or change in sensation of wellbeing. ENMT: No rhinorrhea, otorrhea, sinus pain, ear ache. CARDIOVASCULAR: No angina, palpitations, orthopnea or paroxysmal dyspnea. RESPIRATORY: No SOB. GASTROINTESTINAL: No abdominal pain, nausea, vomiting, diarrhea, hematemesis, melena or change in the patient's habitual bowel movements consistency/number. GENITOURINARY: No dysuria, hematuria or change in bladder continence. MUSCULOSKELETAL: No new muscle pain or decrease in muscular strength. No new joint swelling, redness or tenderness. SKIN: No new rash. Physical Exam: GEN: Awake, alert, oriented in person, time and place, and in no acute distress. HEENT: No sinus tenderness. Tympanic membranes were not examined. No rhinorrhea. Oral pharyngeal mucosa is pink, moist and within normal limits. Neck is supple with no cervical lymphadenopathy, thyromegaly or JVD. CHEST: Inspection, palpation and percussion of the chest were unremarkable. Lung auscultation revealed normal breath sounds bilaterally. CARDIAC: PMI is within normal limits. Heart sounds are regular. Normal S1, S2. No gallop or murmur. ABD: Soft, non-tender and not distended. No peritoneal signs on palpation. No organomegaly. Normal bowel sounds. EXT: No cyanosis or clubbing. No edema. SKIN: Intact. No rashes. JOINTS: No evidence of synovitis or acute arthritis. NEURO: Alert and oriented to name, place and person. Cranial nerve examination is unremarkable. No focal motor deficits. Normal speech. Gait is normal. Strength is normal. Vital Signs (last 8hr) Date Time Temp Pulse Resp B/P (MAP) Pulse Ox O2 Delivery O2 Flow Rate FiO2 09/04/24 16:00 97.7 77 16 152/58 99 Room Air 21 09/04/24 12:00 98.1 72 16 153/67 97 Room Air 21 Laboratory: [ ] Laboratory: Test 09/04/24 15:57 09/04/24 05:45 Range/Units Whole Blood Glucose 67 L 70-110 MG/DL White Blood Count 4.8 4.8-10.8 K/uL Red Blood Count 4.09 4.00-5.50 MIL/uL Hemoglobin 12.6 # 12.0-16.0 g/dL Hematocrit 37.0 # 36-48 % Mean Corpuscular Volume 90.5 79-99 fL Mean Corpuscular Hemoglobin 30.8 27.0-33.0 pg Mean Corpuscular Hemoglobin Concent 34.1 32.0-36.0 g/dL Red Cell Distribution Width 14.7 11.0-15.5 % Platelet Count 230 130-400 K/uL Mean Platelet Volume 9.7 7.5-10.5 fL Immature Granulocyte % (Auto) 0.2 0-1 % Neutrophils (%) (Auto) 71.4 40.0-77.0 % Lymphocytes (%) (Auto) 21.8 21.0-51.0 % Monocytes (%) (Auto) 4.8 3.0-13.0 % Eosinophils (%) (Auto) 1.0 0.0-8.0 % Basophils (%) (Auto) 0.8 0.0-5.0 % Neutrophils # (Auto) 3.4 1.8-7.7 K/uL Lymphocytes # (Auto) 1.0 1.0-4.8 K/uL Monocytes # (Auto) 0.2 0.1-1.0 K/uL Eosinophils # (Auto) 0.05 0.00-0.70 K/uL Basophils # (Auto) 0.04 0.00-0.20 K/uL Absolute Immature Granulocyte (auto 0.01 0-1 K/uL Nucleated Red Blood Cells 0.0 0.0-0.19 % Sodium Level 143 136-145 mmol/L Potassium Level 3.1 L 3.5-5.1 mmol/L Chloride Level 107 101-111 mmol/L Carbon Dioxide Level 27 21-32 mmol/L Blood Urea Nitrogen 8 7-18 mg/dL Creatinine 0.4 L 0.5-1.0 mg/dL Glomerular Filtration Rate Calc 97 >90 mL/min Random Glucose 157 H 70-105 mg/dL Total Calcium 8.4 L 8.5-10.1 mg/dL Magnesium Level 1.90 1.80-2.40 mg/dL Total Bilirubin 0.7 0.2-1.0 mg/dL Aspartate Amino Transf (AST/SGOT) 27 10-37 U/L Alanine Aminotransferase (ALT/SGPT) 15 12-78 U/L Alkaline Phosphatase 66 50-136 U/L Total Protein 6.0 6.0-8.3 g/dL Albumin 2.8 L 3.5-5.0 g/dL Current Medications Medications (Trade) Dose Ordered Sig/Emily Route PRN Reason Start Time Stop Time Status Last Admin Dose Admin Acetaminophen (TYLenol 325MG TAB) 650 mg Q4H PRN PO TEMPERATURE GREATER THAN 101.5 09/01/24 13:30 10/01/24 13:29 Dextrose (D50w) 50 ml AD PRN IV HYPOGLYCEMIA PROTOCOL 09/02/24 06:00 10/02/24 05:59 09/04/24 05:31 50 ML Glucagon (Glucagon 1mg Kit) 1 mg AD PRN IM HYPOGLYCEMIA PROTOCOL 09/02/24 06:00 10/02/24 05:59 Hydralazine HCl (APRESOLine 20MG INJ) 5 mg Q4H PRN IV ADMINISTER FOR SBP > 160 09/01/24 13:30 10/01/24 13:29 09/04/24 00:04 5 MG Insulin Human Regular (humuLIN R 100 UNIT/ML 3ML) INSULIN SLIDING SCAL... ACHS SQ 09/01/24 16:30 10/01/24 16:29 Ketorolac Tromethamine (toRADol) 15 mg Q6H PRN IV MODERATE PAIN (4-6) 09/01/24 13:30 09/06/24 13:29 Magnesium Sulfate 50 ml @ 0 mls/hr PROTOCOL PRN IV low mag level 09/01/24 13:30 10/01/24 13:29 Multivitamins/ Minerals 10 ml/ Folic Acid 1 mg/ Thiamine HCl 100 mg/Sodium Chloride 1,010 ml @ 50 mls/hr DAILY IV 09/02/24 09:00 09/03/24 19:16 DC 09/03/24 09:52 50 MLS/HR Pantoprazole Sodium (PROTonix 40MG INJ) 40 mg DAILY IVP 09/02/24 09:00 10/02/24 08:59 09/04/24 09:40 40 MG Pharmacy Profile Note (Pharmacy Communication) 1 each AD MISC 09/02/24 10:00 09/02/24 09:44 DC Polyethylene Glycol/ Electrolytes (Golytely/Colyte Soln) 4,000 ml ONCE STAT PO 09/02/24 08:29 09/02/24 08:45 DC Potassium Chloride 100 ml @ 50 mls/hr AD PRN IV POTASSIUM PROTOCOL 09/01/24 13:30 09/03/24 10:04 DC 09/02/24 04:27 50 MLS/HR Potassium Chloride 100 ml @ 100 mls/hr AD PRN IV POTASSIUM PROTOCOL 09/03/24 10:00 10/03/24 09:59 09/04/24 06:33 100 MLS/HR Potassium Chloride (K-Dur/Klor-Con 20meq) 20 meq AD PRN PO POTASSIUM PROTOCOL 09/03/24 10:00 10/03/24 09:59 Potassium Chloride (KCl 10% Elixir 20meq/15ml) 20 meq AD PRN PO POTASSIUM PROTOCOL 09/03/24 10:00 10/03/24 09:59 Sodium Chloride 1,000 ml @ 75 mls/hr [id number] IV 09/01/24 13:30 09/01/24 14:57 DC 09/01/24 13:34 75 MLS/HR Thiamine HCl (Vitamin B-1) 100 mg DAILY IVP 09/02/24 09:00 10/02/24 08:59 09/04/24 09:40 100 MG Diagnostics / Radiology: [COPY/PASTE HERE IF NO REPORTS PLEASE DELETE SECTION] Assessment: Constipation vs distal bowel obstruction Plan: continue daily bowel regimen like miralax Continue oral diet modifications as tolerated Notify us if family would like peg for supplemental nutrition AMANDA PIKE AUTOMOBILE TAILLIGHT ASSEMBLER Sep 04, 2024 18:37
[2024-09-05] MEDS ORDERED: BACITRACIN 28.4 GM OINT TP ONE (09:00)
== END 2024-09-04 17:45 | disposition hospice, home (50) | DRG 388 ==
LOC: EDH 10:52 → EDHIP 13:18 → 4DH 09-02 02:12
PROVIDERS: ADMIT Internal Medicine; ATTEND Internal Medicine
DX: K56.609 Unspecified intestinal obstruction, unspecified as to partial versus complete obstruction (principal); E43 Unspecified severe protein-calorie malnutrition; E87.0 Hyperosmolality and hypernatremia; Z68.1 Body mass index [BMI] 19.9 or less, adult; K59.00 Constipation, unspecified; R33.9 Retention of urine, unspecified; R62.7 Adult failure to thrive; E86.0 Dehydration; Z66 Do not resuscitate; K63.89 Other specified diseases of intestine; E87.6 Hypokalemia; E03.9 Hypothyroidism, unspecified; E78.00 Pure hypercholesterolemia, unspecified; E11.51 Type 2 diabetes mellitus with diabetic peripheral angiopathy without gangrene; F03.90 Unspecified dementia, unspecified severity, without behavioral disturbance, psychotic disturbance, mood disturbance, and anxiety; I10 Essential (primary) hypertension; I25.10 Atherosclerotic heart disease of native coronary artery without angina pectoris; Z51.5 Encounter for palliative care
CPT/HCPCS: 36415; 74018; 74176; 80053; 81001; 82948; 83735; 85025; 92507; 92610; 96361; 99285; G0378; J0360; J2470; J3411; J3480; J3490; J7030; J7070